=== PATIENT | female | born 1940 | race Caucasian/White ===

== ENCOUNTER 2024-08-01 15:36 | Inpatient (IN) | payer MEDICARE, SELFPAY ==
[2024-08-01] VITALS (14 sets, daily range): BP systolic 104–242; BP diastolic 92–115; PULSE 69–114; RESP 14–20; TEMP 36.2–36.7; O2SAT 97–100; BMI 10.3; BMI 22.7; BMI 22.8
--- NOTE | 2024-08-01 15:37 | EKG12_ITS ---
Test Reason : STROKE TEAM Blood Pressure : */* mmHG Vent. Rate : 78 BPM Atrial Rate : * BPM P-R Int : * ms QRS Dur : 118 ms QT Int : 400 ms P-R-T Axes : * -42 68 degrees QTcB Int : 456 ms Atrial fibrillation Left axis deviation Left ventricular hypertrophy with QRS widening ( R in aVL , Abhay product ) Abnormal ECG Confirmed by Fady Fonseca ([id number]), editor in chief SANAM HINES ([id number]) on 08/04/2024 10:23:31 AM Referred By: Vikki Fernandez Confirmed By: Fady Fonseca
--- NOTE | 2024-08-01 15:37 | CT_ITS ---
INDICATION: Neuro deficit, acute, stroke suspected EXAMINATION: CT BRAIN - CT Head Stroke Protocol W/O Contrast Injection TECHNIQUE: Multiple axial images were obtained of the head without intravenous contrast. The protocol utilizes one or more of the following dose reduction techniques: automated exposure control, adjustment of mA and/or kV according to patient size,and/or use of iterative reconstruction technique. IV Contrast dosage and agent: None. RADIATION DOSAGE (If Supplied By Facility): CTDIvol = ( ) mGy, DLP = ( ) mGycm COMPARISON: No relevant prior comparison study available FINDINGS: BRAIN PARENCHYMA: No intra- or extra-axial hemorrhage. There are patchy foci of low attenuation within the white matter of the cerebral hemispheres, a nonspecific finding most commonly reflecting small vessel ischemia. There is a focus of encephalomalacia within the right frontal lobe suggestive of an old infarct. There is a mildly high in attenuation 1.2 x 0.8 cm round focus arising from the right frontal lobe with overlying scalloping that has a chronic appearance. No evidence of acute infarct. No intracranial mass or mass effect. There is preservation of the dean/white matter interface. Posterior fossa structures are unremarkable. CSF SPACES: Appropriate for age. No hydrocephalus. Basal cisterns are patent. CALVARIUM, SKULL BASE, PARANASAL SINUSES AND MASTOID AIR CELLS: Clear. No discrete lytic or blastic abnormalities. ORBITS: Both globes, extraocular muscles, optic nerves and retrobulbar fat appear unremarkable. ASPECTS Score for Acute Strokes: 10 CT/STROKE Brain/Head without Cont IMPRESSION: Small vessel ischemia. Questionable 1.2 x 0.8 cm round focus involving the right frontal lobe, may be artifactual however cannot exclude a meningioma, recommend an MRI with contrast for further characterization. Focus of encephalomalacia within the right frontal lobe suggestive of an old infarct. N.B. : The above Results were Read Back by Pippa Alcantar MD to Sukhwinder Dixon DO, and understanding confirmed on 08/01/2024 15:55:20 (ET). Electronically Signed: Pippa Alcantar MD at 15:56 EST ,
--- NOTE | 2024-08-01 15:38 | CT_ITS ---
We are attempting to reach an attending provider to discuss findings. An addendum with communication details will be sent when the communication is complete. STUDY: CTA HEAD AND NECK WITH CONTRAST REASON FOR EXAM: Female, 84 years old. Neuro deficit, acute, stroke suspected RADIATION DOSAGE (If Supplied By Facility): CTDIvol = ( 23.19 ) mGy, DLP = ( 683.01 ) mGycm TECHNIQUE: CT angiography was performed with a multi-detector CT scanner. Data acquisition was obtained from the skull base through the vertex following intravenous administration of IV 75mL [id number]-[id number]. MIP images were reconstructed from the axial data set. Post-processing of the angiographic images was performed, with multiplanar reformation and 3D reconstruction. Individualized dose optimization techniques were used for this CT. The protocol utilizes one or more of the following dose reduction techniques: automated exposure control, adjustment of mA and/or kV according to patient size,and/or use of iterative reconstruction technique. COMPARISON: August 01, 2024 CT brain FINDINGS: Normal bilateral petrous carotid arteries. There is calcified plaque formation of the right cavernous carotid artery, with a moderate stenosis (50-75%). There is calcified plaque formation of the left cavernous carotid artery, with a moderate stenosis (50-75%). Normal right A1 segments of the anterior cerebral artery. Normal left A1 segments of the anterior cerebral artery. Normal intact anterior communicating artery (ACOM). Normal bilateral A2 segments of the anterior cerebral arteries. Normal right M1 and M2 segments of the middle cerebral arteries, with a normal M1 bifurcation. Normal left M1 and M2 segments of the middle cerebral arteries, with a normal M1 bifurcation. There is non-visualization of the right posterior communicating artery (PCOM). There is non-visualization of the left posterior communicating artery (PCOM). Left vertebral artery is dominant. There is moderate stenosis of the distal right vertebral artery. Normal basilar artery with a normal basilar bifurcation. The visualized bilateral superior cerebellar (SCA) arteries are normal. Normal bilateral P1, P2 and visualized P3 segments of the posterior cerebral arteries. There is no demonstrated aneurysm of the [place]. Right frontal ill-defined hypodensity. AORTIC ARCH: Normal visualized aortic arch. Normal origins of the brachiocephalic, left common carotid, and left subclavian arteries. RIGHT CAROTID ARTERIES: Normal right common carotid artery (CCA). Normal right common carotid bulb. Normal origin of the right internal carotid (ICA) artery without a hemodynamically significant stenosis. Normal visualized cervical portion of the right internal carotid artery. Normal origin of the right external carotid artery (ECA). LEFT CAROTID ARTERIES: Normal left common carotid artery (CCA). Normal left common carotid bulb. Normal origin of the left internal carotid (ICA) artery without a hemodynamically significant stenosis. Normal visualized cervical portion of the left internal carotid artery. Normal origin of the left external carotid artery (ECA). VERTEBRAL ARTERIES: Normal bilateral vertebral arteries. CT/STROKE CTA Head AND Neck W/Con IMPRESSION: Possible infarct right frontal lobe, age indeterminate. No enhancing mass. MRI with and without contrast would be more sensitive however. 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 Electronically Signed: Ayush Rodriguez MD at 16:28 EST ,
--- NOTE | 2024-08-01 15:38 | ED.VIS.STROK ---
HPI History of Present Illness Chief Complaint: Neuro S/Sx Informant: patient Narrative Narrative: Private vehicle presentation stroke symptoms concerns in triage with activation. 3:15 PM 15 minutes ago had concerns for slurred speech right arm weakness and numbness on right side. States speech currently still off numbness weakness is improved. No stroke history. No anticoagulants. Patient denies any past med history. Blood pressure elevated started 240 on arrival. No headache. No chest pains no back pains no abdominal pain. Prior similar symptoms: No PFSH PFSH Medical History (Updated 08/01/24 @ 16:[address] Vikki Fernandez MD) Afib HTN (hypertension) Home Medications ?Medication ?Instructions ?Recorded ?Last Taken ?Type NK 08/01/24 Unknown History Allergy/AdvReac Type Severity Reaction Status Date / Time No Known Allergies Allergy Verified 08/01/24 16:07 Family History (Updated 08/01/24 @ 17:[address] Vikki Fernandez MD) Mother CVA (cerebral vascular accident) Father No problems noted. Surgical History (Updated 08/01/24 @ 17:[address] Vikki Fernandez MD) History of bilateral tubal ligation History of total right hip replacement History of throat surgery Social History (Updated 08/01/24 @ 17:[address] Vikki Fernandez MD) household members: none Smoking Status: Never smoker alcohol intake: never substance use type: does not use ROS ROS ED Constitutional Constitutional ED: Denies chills, fever(s) or sweats ENT ENT ED: Denies sore throat Cardiovascular Cardiovascular: Denies chest pain, leg edema, palpitations or racing heartbeat Respiratory/Chest Respiratory/Chest: Denies cough, dyspnea or dyspnea on exertion Gastrointestinal Gastrointestinal: Denies abdominal pain, diarrhea, nausea or vomiting Genitourinary Genitourinary ED: Denies dysuria, hematuria or urinary frequency Musculoskeletal Musculoskeletal: Denies back pain, extremity pain or neck pain Integumentary Denies rash or wounds Neurologic Neurologic: Reports paresthesias, weakness and other Details: slurred speech ; Denies headache(s) EXAM Physical Exam Const Vital Signs: 08/01/24 15:36 08/01/24 15:37 08/01/24 15:38 Temperature 97.2 F L Temperature Source Temporal Pulse Rate 114 H 114 H 114 H Respiratory Rate 18 16 16 Blood Pressure 242/109 H 242/109 H 242/109 H Blood Pressure Mean 153 153 153 Pulse Ox 99 99 99 Oxygen Delivery Method Room Air Room Air 08/01/24 15:43 08/01/24 15:51 08/01/24 16:12 Temperature Temperature Source Pulse Rate 98 81 Respiratory Rate 15 20 H Blood Pressure 194/111 H 214/115 H Blood Pressure Mean 138 148 Pulse Ox 99 98 99 Oxygen Delivery Method Room Air Room Air 08/01/24 16:16 08/01/24 16:31 08/01/24 16:34 Temperature Temperature Source Pulse Rate 99 81 69 Respiratory Rate 17 18 15 Blood Pressure 214/115 H 191/93 H 191/93 H Blood Pressure Mean 148 125 125 Pulse Ox 100 98 98 Oxygen Delivery Method Positive well nourished and well developed General Appearance ED: well developed and NAD HEENT Reports moist mucous membranes normocephalic and atraumatic Eyes Eyes Narrative: No nystagmus General Eye ED: Yes normal appearance of both eyes Neck full ROM Chest Wall Chest: Negative for tenderness Resp normal respiratory effort and normal air movement Effort and Inspection: symmetric chest movement; Negative for respiratory distress Cardio regular rhythm and no murmurs Rate: tachycardic Peripheral Pulses: pulses 2+ throughout GI normal to inspection, nondistended, normoactive bowel sounds and non-tender Palpation: Negative for guarding or rebound tenderness present Extremity normal to inspection General Extremety ED: Negative for edema or tenderness General Extremity: Negative for edema Neuro oriented x3, CN's II-XII intact bilaterally and no sensory deficits noted Neuro Narrative: NIH of 1 secondary to dysarthria. Sensorium / Orientation: awake and alert Skin no rashes or lesions noted and no wounds NIHSS NIHSS Initial: 1a Level of Consciousness: 0 1b LOC Questions (Score 2 if aphasic/stupor): 0 1c LOC Commands (Only score 1st attempt): 0 2 Best Gaze (If aphasic, use reflexive mvmts.): 0 3 Visual: 0 4 Facial Palsy: 0 5 Motor Arm Right (UN = amputation/fusion): 0 5 Motor Arm Left: 0 6 Motor Leg Right: 0 6 Motor Leg Left: 0 7 Limb ataxia (Only + if out of proportion): 0 8 Sensory (Aphasia/stupor=0 or 1, coma=2): 0 9 Best Language: 0 10 Dysarthria (mute, coma=2, intubated=UN): 1 11 Extinction and Inattention (only scored if +): 0 Total Score: 1 MDM MDM MDM Narrative Medical decision making narrative: Interventions / MDM: Differential diagnosis: TIA, dysarthria, recurrent atrial fibrillation, accelerated hypertension Diagnosis considered but do not suspect: Intracranial hemorrhage however CT negative. My EKG interpretation: Atrial fibrillation rate of 78, no ST or T wave changes. Imaging independently reviewed and interpreted by myself: CT brain and discussion radiologist no intracranial hemorrhage old right frontal infarct, possible meningioma 1.[address] angiogram head and neck discussion with radiologist no LVO. External documents reviewed: N/A Test considered but not ordered:N/A ED course: Patient NIH of 1 due to dysarthria currently. Blood pressure is 240 in the triage room. No headache chest or abdominal pain. Patient sent over for CT scans stroke protocol workup. Will recheck blood pressure plan for antihypertensive. 1600: Stroke neurologist on the monitor Dr. Guerra, evaluate patient agrees with NIH 1 for slight dysarthria. Blood pressure down to 190/111. Monitor notes irregular rhythm fluctuating 90s to 110s. Further discussion with the patient she has had A-fib in the past along with hypertension and stopped her medications years ago including Xarelto. She denied any stroke history prior to that. He did not recommend TNK at this time pending results of the CT angiogram. I did speak with radiologist dry CT old infarct right frontal along with questionable 1.2 cm right frontal artifact versus lesion that is possible meningioma. Per neurology, recommended plan MRI with and without contrast secondary to this. Blood pressure recheck 211 systolic heart rate high 90s, we will treat her with labetalol 20 mg IV x 1. 1630: CT angiogram discussion with radiologist moderate stenosis bilateral cavernous sinus internal carotid less than 70%. Moderate stenosis v4 branch of right vertebral artery. 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 Blood pressure rechecked after labetalol systolic 190/100. Heart rate in the 80s. I spoke with hospitalist Dr. Fernandez for admission to PCU. Re-evaluation: stable Disposition discussed with patient/family/significant other: Patient and family Case discussed with consulting clinician: Stroke neurologist, hospitalist This note was generated with [employer] dictation software. It may contain incorrect words, spelling, and punctuation that were not noted in checking the note before signing. Lab Data Attestation: I reviewed the patient's lab results. Labs: Laboratory Results - last 24 hr 08/01/24 08/01/24 15:45 15:48 WBC 8.9 RBC 5.11 Hgb 16.3 H Hct 47.1 H MCV 92.2 MCH 31.9 MCHC 34.6 RDW Std Deviation 42.3 RDW Coeff of Anna 12.4 Plt Count 158 MPV 11.0 Immature Gran % (Auto) 0.200 Neut % (Auto) 53.6 Lymph % (Auto) 33.7 Howard % (Auto) 10.4 H Eos % (Auto) 1.5 Baso % (Auto) 0.6 Absolute Neuts (auto) 4.8 Absolute Lymphs (auto) 2.99 Nucleated RBC % 0 PT 13.9 INR 1.1 APTT 26.9 Sodium 137 Potassium 3.9 Chloride 103 Carbon Dioxide 30.0 Anion Gap 4 L BUN 14 Creatinine 1.03 H Estim Creat Clear Calc 37.89 Est GFR (MDRD) Af Amer 66 Est GFR (MDRD) Non-Af 55 L BUN/Creatinine Ratio 13.6 Glucose 105 Calcium 9.1 Magnesium 2.2 Troponin I High Sens 16 Radiography Diagnostic Testing: Clinical Impression(s) from Imaging Studies Brain CT 08/01/24 15:37 IMPRESSION: Small vessel ischemia. Questionable 1.2 x 0.8 cm round focus involving the right frontal lobe, may be artifactual however cannot exclude a meningioma, recommend an MRI with contrast for further characterization. Focus of encephalomalacia within the right frontal lobe suggestive of an old infarct. N.B. : The above Results were Read Back by Pippa Alcantar MD to Sukhwinder Dixon DO, and understanding confirmed on 08/01/2024 15:55:20 (ET). Electronically Signed: Pippa Alcantar MD at 15:56 EST , ADDENDUM: 08/01/24 2965 IMPRESSION: Small vessel ischemia. Questionable 1.2 x 0.8 cm round focus involving the right frontal lobe, may be artifactual however cannot exclude a meningioma, recommend an MRI with contrast for further characterization. Focus of encephalomalacia within the right frontal lobe suggestive of an old infarct. N.B. : The above Results were Read Back by Pippa Alcantar MD to Sukhwinder Dixon DO, and understanding confirmed on 08/01/2024 15:55:20 (ET). Electronically Signed: Pippa Alcantar MD at 15:56 EST , Head/Neck CTA 08/01/24 15:38 IMPRESSION: Possible infarct right frontal lobe, age indeterminate. No enhancing mass. MRI with and without contrast would be more sensitive however. 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 Electronically Signed: Ayush Rodriguez MD at 16:28 EST Reading Location ID and State: [address] [place] [address] Tel , Service support , ADDENDUM: 08/01/24 1642 IMPRESSION: Possible infarct right frontal lobe, age indeterminate. No enhancing mass. MRI with and without contrast would be more sensitive however. 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 N.B. : The above Results were Read Back by Ayush Rodriguez MD to Sukhwinder Dixon DO, and understanding confirmed on 08/01/2024 16:35:20 (ET). Electronically Signed: Ayush Rodriguez MD at 16:28 EST Reading Location ID and State: [address] [place] [address] Tel , Service support , Chest X-Ray 08/01/24 16:38 IMPRESSION: Normal x-ray examination of the chest. Electronically Signed: Ayush Rodriguez MD at 17:44 EST Reading Location ID and State: [address] [place] [address] Tel , Service support , Stroke Documentation Questions Stroke Team Activated: Yes Reviewed Inclusion/Exclusion criteria: Yes Was Patient considered for Endovascular Intervention?: No-CTA negative, determined not to be an endovascular candidate IV Thrombolytic Administered: No (Rapidly resolving symptoms not recommended by neurologist) Critical Care Time Critical Care Time: Yes Critical care time (excluding procedures): 30-74 minutes, Discussing w/Patient &/or Family/Back Order Clerk, Discussing w/Consultants, Arranging Admission or Transfer, Performing Direct Patient Care at Bedside and - (30 minutes) Discharge Plan Disposition Disposition: Acute Care Hospital [facility] Discharge Date/Time: 08/01/24 17:36
--- NOTE | 2024-08-01 15:44 | ED.RN ---
no old ekg
[2024-08-01 15:58] LABS: Absolute Lymphocyte Count 2.99 X10^3/uL (0.83-4.51); Absolute Neutrophil Count 4.8 X10^3/uL (2.0-7.7); Basophil# 0.05 X10^3/uL; Basophil% 0.6 % (0-1); Eosinophil# 0.13 X10^3/uL; Eosinophils% 1.5 % (0-5); Hematocrit 47.1 % (37-47); Hemoglobin 16.3 g/dL (12.0-15.0); Lymphocyte # 2.99 X10^3/ul (0.83-4.51); Lymphocyte % 33.7 % (19-41); Mean Corp Hgb Conc 34.6 g/dL (32-36); Mean Corpuscular Hgb 31.9 pg (27.0-32.0); Mean Corpuscular Volume 92.2 fL (81-99); Monocyte# 0.92 X10^3/uL; Monocyte% 10.4 % (0-10); NRBC Flagged by Analyzer 0 % (0-5); Neutrophil # 4.77 X10^3/uL (2.7-7.7); Neutrophil % 53.6 % (47-70); Platelet Count 158 K/mm3 (150-450); RBC Distribution Width CV 12.4 % (11.6-14.6); RBC Distribution Width SD 42.3 fl (35.1-43.9); Red Blood Count 5.11 M/mm3 (4.2-5.4); White Blood Count 8.9 K/mm3 (4.4-11.0)
[2024-08-01 16:17] LABS: International Normalized Ratio 1.1; Prothrombin Time (Protime)PT. 13.9 SECONDS (11.7-14.9)
[2024-08-01 16:18] LABS: Partial Thromboplast Time 26.9 Seconds (24.1-36.2)
[2024-08-01 16:22] LABS: Anion Gap 4 (5-15); BUN 14 mg/dL (7-18); BUN/Creat Ratio 13.6 RATIO (10-20); Calcium,Total 9.1 mg/dL (8.5-10.1); Chloride 103 mmol/L (98-107); Creatinine, Serum 1.03 mg/dL (0.55-1.02); EST Glomerular Filtration Rate 55 mL/min (>60); Est Glom Filt Rate - Afr Amer 66 mL/min (>60); Estimated Creatinine Clearance 37.89 ml/min; Glucose 105 mg/dL (74-106); Potassium 3.9 mmol/L (3.5-5.1); Sodium Level 137 mmol/L (136-145); Troponin-I HS 16 pg/mL (3.0-54.0)
--- NOTE | 2024-08-01 16:36 | ED.RN ---
PER DR. ARGUETA WE CAN CHANGE NIHSS ASSESSMENTS TO Q4H NOW THAT THE CTA RESULTS SHOW NO LVO.
--- NOTE | 2024-08-01 16:38 | RAD_ITS ---
STUDY: X-RAY CHEST REASON FOR EXAM: Female, 84 years old. Neuro deficit, acute, stroke suspected TECHNIQUE: Single frontal view of the chest. COMPARISON: None. FINDINGS: The lungs are clear and expanded. There is no demonstrated pleural abnormality. Normal size heart. Normal mediastinum and hyacinth. Normal visualized pulmonary arteries. Normal visualized aortic arch and descending thoracic aorta. Normal visualized thoracic spine. Normal visualized ribs, clavicles, and shoulders. There is no demonstrated abnormality of the visualized soft tissue structures of the upper abdomen. RAD/Chest 1 View IMPRESSION: Normal x-ray examination of the chest. Electronically Signed: Ayush Rodriguez MD at 17:44 EST ,
--- NOTE | 2024-08-01 16:48 | PCM.HP.STD ---
HPI - General General Date of Admission: 08/01/24 Date of Service: 08/01/24 Chief Complaint: Dysarthria, R sided weakness/paresthesias HPI Narrative The patient is an 84 y/o F w/ PMHx: Possible CKD stage III per current GFR trending unclear subtype, PAF, CT evidence prior CVA, HTN not on any medications who presents to the [facility] ED on 08/01/24 with history of onset slurred speech as well as right upper extremity weakness and paresthesias starting approximately 3:15 PM prompting her to drive to the ED for evaluation with weakness and numbness improving upon her arrival but speech still abnormal with no previous stroke history not on any anticoagulation or antiplatelet therapy despite her history with significantly elevated BP upon arrival but denied any chest discomfort or headache. Initial NIH stroke scale 1 for dysarthria only. Workup in the ED included T97.2 Temporally, heart rate 114, BP 242/109, respiratory rate 16, 99% on room air with most recent repeat vitals heart rate 99, BP 214/115, respiratory rate 17, 100% room air and most recent repeat BP 191/93, CBC with WBC 8.9, human 16.3, platelet 158 without marked shift, unremarkable coags, BMP with BUN/creatinine 14/1.03, GFR 55, troponin 16, CT brain with small vessel ischemia, questionable 1.2 x 0.8 cm round focus involving the right frontal lobe possibly artifactual however cannot exclude meningioma, a focus of encephalomalacia within the right frontal lobe suggestive of an old infarct, CTA head and neck with possible infarct in the right frontal lobe age-indeterminate with moderate stenosis bilateral cavernous segments of the internal carotid artery, moderate stenosis V4 segment of the right vertebral artery, EKG with atrial fibrillation with no comparison with on telemetry rate varying from 90-1 10. Given presentation timeline a stroke alert was called. Patient on monitor was noted to have a regular rhythm fluctuating 90-110. Patient then reported in the ED following discussions about irregular rhythm that she did have an underlying A-fib history and in the past stopped her medications including Xarelto. Stroke neurologist recommended deferral of TNK pending results of CT angiogram. Neurology recommended plan for MRI with and without contrast secondary to findings on CT head. [facility] Medical History (Updated 08/01/24 @ 16:[address] Vikki Fernandez MD) Afib HTN (hypertension) Home Medications ?Medication ?Instructions ?Recorded ?Last Taken ?Type NK 08/01/24 Unknown History Allergy/AdvReac Type Severity Reaction Status Date / Time No Known Allergies Allergy Verified 08/01/24 16:07 Family History (Updated 08/01/24 @ 17:[address] Vikki Fernandez MD) Mother CVA (cerebral vascular accident) Father No problems noted. Surgical History (Updated 08/01/24 @ 17:[address] Vikki Fernandez MD) History of bilateral tubal ligation History of total right hip replacement History of throat surgery Social History (Updated 08/01/24 @ 17:[address] Vikki Fernandez MD) household members: none Smoking Status: Never smoker alcohol intake: never substance use type: does not use ROS ROS Narrative Admission Review of Systems: CONSTITUTIONAL: No weight loss, fever, chills, + weakness or fatigue. HEENT: + Slurred speech. Eyes: No visual loss, blurred vision, double vision or yellow sclerae. Ears, Nose, Throat: No hearing loss, sneezing, congestion, runny nose or sore throat. SKIN: No rash or itching, lesions, wounds. CARDIOVASCULAR: No chest pain, chest pressure or chest discomfort, palpitations, edema, orthopnea, syncopal events. RESPIRATORY: No shortness of breath, cough or sputum, wheezing, hemoptysis. GASTROINTESTINAL: No anorexia, nausea, vomiting or diarrhea, abdominal pain, melena, BRBPR. GENITOURINARY: No dysuria, frequency, urgency or retention. NEUROLOGICAL: + Dysarthria, right upper extremity weakness, paresthesias. No headache, dizziness, syncope, paralysis, ataxia, change in bowel or bladder control, seizure. MUSCULOSKELETAL: + muscle, back pain, joint pain or stiffness. HEMATOLOGIC: No anemia. + Easy bleeding/bruising. LYMPHATICS: No enlarged nodes. No history of splenectomy. PSYCHIATRIC: No history of depression or anxiety. ENDOCRINOLOGIC: No reports of sweating, cold or heat intolerance. No polyuria or polydipsia. ALLERGIES: No history of asthma, hives, eczema or rhinitis. Vital Signs Vital Signs Vital Signs: 08/01/24 15:36 08/01/24 15:37 08/01/24 15:38 Temperature 97.2 F L Temperature Source Temporal Pulse Rate 114 H 114 H 114 H Respiratory Rate 18 16 16 Blood Pressure 242/109 H 242/109 H 242/109 H Blood Pressure Mean 153 153 153 Pulse Ox 99 99 99 Oxygen Delivery Method Room Air Room Air 08/01/24 15:43 08/01/24 15:51 08/01/24 16:12 Temperature Temperature Source Pulse Rate 98 81 Respiratory Rate 15 20 H Blood Pressure 194/111 H 214/115 H Blood Pressure Mean 138 148 Pulse Ox 99 98 99 Oxygen Delivery Method Room Air Room Air 08/01/24 16:16 08/01/24 16:31 08/01/24 16:34 Temperature Temperature Source Pulse Rate 99 81 69 Respiratory Rate 17 18 15 Blood Pressure 214/115 H 191/93 H 191/93 H Blood Pressure Mean 148 125 125 Pulse Ox 100 98 98 Oxygen Delivery Method Weight Weight: 136 lb 10.986 oz Body Mass Index (BMI) 22.7 Physical Exam Narrative Physical Examination: General: Awake, alert, oriented x 3 and cooperative, seated upright in ED bed, fatigued otherwise no acute distress, still mild dysarthria but improving and near baseline per discussion with patient and daughter. Skin: Normal color, normal turgor, no icterus, no cyanosis. HEENT: AT/NC, EOMI, PERRLA, mildly dry MM, no carotid bruits or JVD noted. Lungs: Mildly diminished, greater bases, appropriate effort, no rales, ronchi or wheezing. Heart: Irregular, currently rate controlled, no gallop, rub audible. Abdomen: Soft, NTTP, ND, mildly hyperactive BS, no HSM. Extremities: No cyanosis, clubbing, or edema. Neurological: Patient awake, alert, oriented as noted, cognitive function currently appears baseline intact per discussion with daughter; pupils equally reactive to light and accommodation, cranial nerves grossly normal, moving all 4 extremities, no focal deficits, strength intact, sensation intact, still possibly mild dysarthria but family and patient notes that she is improving and potentially nearing baseline. Psychiatric: Affect appears fatigued otherwise normal, no acute evidence of depressive or anxiety feelings. Results Lab / Micro Data 08/01/24 15:48 08/01/24 15:48 Labs: Laboratory Results - last 24 hr 08/01/24 15:48: WBC 8.9, RBC 5.11, Hgb 16.3 H, Hct 47.1 H, MCV 92.2, MCH 31.9, MCHC 34.6, RDW Std Deviation 42.3, RDW Coeff of Anna 12.4, Plt Count 158, MPV 11.0, Immature Gran % (Auto) 0.200, Neut % (Auto) 53.6, Lymph % (Auto) 33.7, [place] % (Auto) 10.4 H, Eos % (Auto) 1.5, Baso % (Auto) 0.6, Absolute Neuts (auto) 4.8, Absolute Lymphs (auto) 2.99, Nucleated RBC % 0, PT 13.9, INR 1.1, APTT 26.9, Sodium 137, Potassium 3.9, Chloride 103, Carbon Dioxide 30.0, Anion Gap 4 L, BUN 14, Creatinine 1.03 H, Estim Creat Clear Calc 37.89, Est GFR (MDRD) Af Amer 66, Est GFR (MDRD) Non-Af 55 L, BUN/Creatinine Ratio 13.6, Glucose 105, Calcium 9.1, Troponin I High Sens 16 Imaging Radiology Impression Brain CT 08/01/24 15:37 IMPRESSION: Small vessel ischemia. Questionable 1.2 x 0.8 cm round focus involving the right frontal lobe, may be artifactual however cannot exclude a meningioma, recommend an MRI with contrast for further characterization. Focus of encephalomalacia within the right frontal lobe suggestive of an old infarct. N.B. : The above Results were Read Back by Pippa Alcantar MD to Sukhwinder Dixon DO, and understanding confirmed on 08/01/2024 15:55:20 (ET). Electronically Signed: Pippa Alcantar MD at 15:56 EST , ADDENDUM: 08/01/24 1604 IMPRESSION: Small vessel ischemia. Questionable 1.2 x 0.8 cm round focus involving the right frontal lobe, may be artifactual however cannot exclude a meningioma, recommend an MRI with contrast for further characterization. Focus of encephalomalacia within the right frontal lobe suggestive of an old infarct. N.B. : The above Results were Read Back by Pippa Alcantar MD to Sukhwinder Dixon DO, and understanding confirmed on 08/01/2024 15:55:20 (ET). Electronically Signed: Pippa Alcantar MD at 15:56 EST , Head/Neck CTA 08/01/24 15:38 IMPRESSION: Possible infarct right frontal lobe, age indeterminate. No enhancing mass. MRI with and without contrast would be more sensitive however. 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 Electronically Signed: Ayush Rodriguez MD at 16:28 EST , ADDENDUM: 08/01/24 1642 IMPRESSION: Possible infarct right frontal lobe, age indeterminate. No enhancing mass. MRI with and without contrast would be more sensitive however. 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 N.B. : The above Results were Read Back by Ayush Rodriguez MD to Sukhwinder Dixon DO, and understanding confirmed on 08/01/2024 16:35:20 (ET). Electronically Signed: Ayush Rodriguez MD at 16:28 EST , Assessment & Plan Assessment/Plan (1) CVA (cerebral vascular accident): PLAN: Plan The patient is an 84 y/o F w/ PMHx: Possible CKD stage III per current GFR trending unclear subtype, PAF, HTN not on any medications who presents to the [facility] ED on 08/01/24 with history of onset slurred speech as well as right upper extremity weakness and paresthesias starting approximately 3:15 PM prompting her to drive to the ED for evaluation with weakness and numbness improving upon her arrival but speech still abnormal with no previous stroke history not on any anticoagulation or antiplatelet therapy despite her history with significantly elevated BP upon arrival but denied any chest discomfort or headache. Initial NIH stroke scale 1 for dysarthria only. #1. Transient right upper extremity weakness, paresthesias with dysarthria concerning for CVA with CT evidence of likely previous remote stroke: Will admit to PCU, will obtain MRI Brain with and without contrast given possible meningioma findings on CT of the brain per neurology recommendation, will obtain ECHO, PT/OT/Speech/Nutrition evaluation per protocol. Will allow permissive HTN with current agents per stroke protocol especially given significantly elevated BP upon ED arrival, maintain on asa, add moderate dose statin w/ AM FLP, fall precautions. Mag, TSH, FLP, HgbA1c requested. Maintain on fall and aspiration precautions. Will continue neurology consultation. Given this presentation we will need to restart patient anticoagulant therapy however will defer immediate resumption as 1 to assure there is no marked stroke and if there is would want to avoid possible conversion but will defer to neurology recommendations. #2. Hypertensive emergency: Patient upon arrival with significantly elevated BP in the setting of strokelike symptoms, will have as needed agents per stroke protocol and continue to closely monitor with deference of course to neurology service recommendation. #3. PAF: Unfortunately patient had previously been on medications including anticoagulant but noted she had come off for the last year for unclear reason, will maintain permissive hypertension and continue evaluation including MRI as noted but once clinically appropriate would plan to add rate control agent as well as anticoagulant. #4. Suspect Chronic Kidney Disease Stage III, unclear subtype, per GFR trending but no chronic labs noted previous thus uncertain chronicity: Admission BUN/Cr 14/1.03, GFR 55, unclear baseline creatinine or GFR, will repeat CMP in a.m. to further elucidate chronicity. #5. DVT prophylaxis: Lovenox. Once MRI is obtained and if clinically appropriate would then transition to oral anticoagulant given PAF history however defer immediately given concern for potential size of stroke and conversion potential. #6. CODE status: Patient ELZA is her daughter who is present and living will is currently in place. Discussed CODE status at length including difference between FULL code, DNR-CCA and DNR-CC status. Following discussions about the differences in these status, requested Full Code status but only short term mechanical ventilation and no prolonging methods if no quality of life. Advanced Care Planning Face to Face Time: 16 minutes. Charges/Coding Visit Charges Inpatient E&M: 68533 Init Hosp L3 Procedures Hospitalists Procedures: 03937 Advncd Care Plan 30 Min
--- NOTE | 2024-08-01 16:53 | MRI_ITS ---
We are attempting to reach an attending provider to discuss findings. An addendum with communication details will be sent when the communication is complete. STUDY: MRI BRAIN WITH AND WITHOUT CONTRAST REASON FOR EXAM: Female, 84 years old. CVA, ? meningioma, RT SIDED WEAKNESS, SLURRED SPEECH ALL RESOLVED NOW TECHNIQUE: Standardized multiplanar fat and water weighted pulse sequences were obtained. IV 12CC CLARISCAN was administered for the contrast portion of the examination. COMPARISON: CT and CTA brain August 01, 2024. FINDINGS: There is mild cerebral atrophy with widening of the extra-axial spaces and ventricular dilatation. There are a limited number of small white matter hyperintensities, distributed throughout the deep white matter tracts of the cerebral hemispheres, consistent with mild chronic white matter ischemic changes. Right frontal cortical encephalomalacia. Possible punctate focus of restricted diffusion posterior centrum semiovale bowel high parietal lobe. 5 x 13 mm cystic lesion near the transverse sinus right tentorium probably representing. Arachnoid granulation. Normal bilateral basal ganglia. Normal thalami. There is no extra-axial fluid accumulation. Normal flow voids within the major intracranial circulation suggesting patency by spin echo criteria. Normal venous enhancement. There is no enhancing intra-axial or extra-axial abnormality. Normal sella turcica, pituitary gland, infundibular stalk, optic chiasm and hypothalamus. Normal tectal plate and pineal gland. Normal midbrain, cezar and medulla. Normal cerebellum. Normal basal cisterns. Normal bilateral temporal bones. Normal bilateral internal auditory canals. No demonstrated orbital abnormality, within the constraints of a routine brain study. Normal visualized paranasal sinuses. Hyperostosis frontalis interna. Normal visualized soft tissue structures. Normal visualized upper cervical spine. MRI/Brain W/WO Contrast IMPRESSION: Questionable isolated punctate acute or subacute embolic infarct right posterior centrum semiovale. Other incidental findings as noted above. Electronically Signed: Ayush Rodriguez MD at 21:29 EST ,
[2024-08-01 17:11] LABS: Magnesium 2.2 mg/dL (1.6-2.6)
--- NOTE | 2024-08-01 17:57 | CM.ED ---
Social Work Reason for visit: Stroke alert Patient was brought in my two friends. They were working at the [employer] and patient began showing some stroke like symptoms. Patients friends had contacted patients daughter and she was on her way to the hospital. Supportive listening and emotional support offered. No further needs identified. Lucero Doyle, EXTRUSION ENGINEER, HYDRATE CONTROL TENDER
--- NOTE | 2024-08-01 18:29 | ECHOD_ITS ---
Version 2 Reason For Study: TIA/CVA Procedure This was a 2D Doppler, Color Flow transthoracic echocardiogram. Exam performed portable in patient room. Left Ventricle Normal LV size. Left ventricular systolic function is normal. The left ventricular ejection fraction is 60 %. No regional wall motion abnormalities noted. Right Ventricle Normal RV size. Normal systolic function. Atria The left atrium is mildly enlarged. A large mobile structure attached to the interatrial septum measuring up to 2.7 cm x 2.1 cm very suggestive of a thrombus though an atypical myxoma cannot be completely excluded. Small mass measuring 1.1 x 1.1 cm also noted in the lower septum also suggestive of a thrombus. The right atrium is mildly enlarged. Mitral Valve Normal mitral valve. Mild (1+) eccentric mitral valve insufficiency. Tricuspid Valve Normal tricuspid valve. Mild tricuspid valve insufficiency. Pulmonary artery systolic pressure is 26 mmHg. Aortic Valve Trisinus/trileaflet aortic valve. Mild (1+) eccentric aortic valve insufficiency. Pulmonic Valve Normal pulmonic valve. Great Vessels Normal aortic root. The pulmonary artery is normal size. Inferior vena cava collapse with respiration. Pericardium/Pleural No pericardial effusion. MMode/2D Measurements & Calculations LVIDd: 4.4 cm IVSd: 1.2 cm asc Aorta Diam: 2.9 cm LVIDs: 3.2 cm LVPWd: 1.1 cm RVDd: 2.6 cm FS: 27.3 % LAV(MOD-bp): 57.9 ml LVAd ap4: 20.7 cm2 SV(MOD-sp4): 34.9 ml LAV(MOD-bp) Indexed: 34.5 ml/m2 LVLd ap4: 6.4 cm SI(MOD-sp4): 20.8 ml/m2 LAV(MOD-sp2): 53.9 ml EDV(MOD-sp4): 56.1 ml LAV(MOD-sp4): 60.0 ml EDV(sp4-el): 57.4 ml LVAs ap4: 11.7 cm2 LVLs ap4: 5.7 cm ESV(MOD-sp4): 21.1 ml ESV(sp4-el): 20.4 ml EF(MOD-sp4): 62.3 % EF(sp4-el): 64.5 % SV(sp4-el): 37.0 ml LA A4 area: 21.8 cm2 LA dimension(2D): 4.6 cm RA A4 area: 24.0 cm2 TAPSE: 1.5 cm Doppler Measurements & Calculations MV E max kunal: 91.0 cm/sec Lat Peak E' Kunal: 13.5 cm/sec Med Peak E' Kunal: 7.6 cm/sec E/E' lat: 6.8 E/E' med: 12.0 Ao V2 max: 126.3 cm/sec AI max kunal: 523.4 cm/sec LV V1 max: 90.5 cm/sec Ao max P.4 mmHg AI max P.6 mmHg LV V1 max P.3 mmHg Ao V2 mean: 82.5 cm/sec LV V1 mean P.6 mmHg Ao mean P.0 mmHg AI dec slope: 248.8 cm/sec2 LV V1 mean: 57.3 cm/sec Ao V2 VTI: 24.0 cm AI P1/2t: 616.1 msec LV V1 VTI: 19.8 cm AV (velocity ratio): 0.82 PA V2 max: 92.8 cm/sec TR max kunal: 240.4 cm/sec TR max P.1 mmHg ECHO/Echo Complete Interpretation Summary Normal LV size. Left ventricular systolic function is normal. A large mobile structure attached to the interatrial septum measuring up to 2.7 cm x 2.1 cm very suggestive of a thrombus though an atypical myxoma cannot be completely exclude d. Smaller mass measuring 1.1 x 1.1 cm also noted in the lower septum also suggestive of a thro mbus. Rec DIMITRI The left ventricular ejection fraction is 60 %. Ordering Physician: Vikki Fernandez Referring Physician: Vikki Fernandez Performed By: Nancy Ridley RDCS, RVT
[2024-08-01] MEDS: Aspirin 325 MG Tablet PO (18:55)
[2024-08-01] MEDS: Atorvastatin Calcium 40 MG Tablet PO (20:28)
[2024-08-02] VITALS (9 sets, daily range): BP systolic 134–180; BP diastolic 76–96; PULSE 65–95; RESP 12–18; TEMP 35.9–36.7; O2SAT 97–99; BMI 22.8; BMI 23.3
[2024-08-02 07:20] LABS: Absolute Lymphocyte Count 1.85 X10^3/uL (0.83-4.51); Absolute Neutrophil Count 3.8 X10^3/uL (2.0-7.7); Basophil# 0.06 X10^3/uL; Basophil% 0.9 % (0-1); Eosinophil# 0.17 X10^3/uL; Eosinophils% 2.5 % (0-5); Hematocrit 42.4 % (37-47); Hemoglobin 14.6 g/dL (12.0-15.0); Lymphocyte # 1.85 X10^3/ul (0.83-4.51); Lymphocyte % 27.7 % (19-41); Mean Corp Hgb Conc 34.4 g/dL (32-36); Mean Corpuscular Hgb 31.7 pg (27.0-32.0); Mean Platelet Vol. 10.8 fl (6.2-12.0); Monocyte# 0.83 X10^3/uL; Monocyte% 12.4 % (0-10); NRBC Flagged by Analyzer 0 % (0-5); Neutrophil # 3.76 X10^3/uL (2.7-7.7); Neutrophil % 56.2 % (47-70); Platelet Count 132 K/mm3 (150-450); RBC Distribution Width CV 12.5 % (11.6-14.6); RBC Distribution Width SD 42.3 fl (35.1-43.9); Red Blood Count 4.61 M/mm3 (4.2-5.4); White Blood Count 6.7 K/mm3 (4.4-11.0)
[2024-08-02 07:55] LABS: ALB/GLOB Ratio 1.1 RATIO (0.9-2.4); AST(SGOT) 16 U/L (15-37); Alanine Aminotransfer ALT/SGPT 11 U/L (13-56); Albumin, Serum 3.3 g/dL (3.2-5.0); Alkaline Phosphatase 74 U/L (45-117); Anion Gap 6 (5-15); BUN 12 mg/dL (7-18); BUN/Creat Ratio 12.5 RATIO (10-20); Calcium,Total 8.8 mg/dL (8.5-10.1); Chloride 108 mmol/L (98-107); Cholesterol 152 mg/dL (200); Creatinine, Serum 0.96 mg/dL (0.55-1.02); EST Glomerular Filtration Rate 59 mL/min (>60); Est Glom Filt Rate - Afr Amer 72 mL/min (>60); Estimated Creatinine Clearance 40.66 ml/min; Glucose 91 mg/dL (74-106); High Density Lipoprotein 65 mg/dL; Potassium 4.1 mmol/L (3.5-5.1); Protein, Total 6.3 g/dL (6.4-8.2); Sodium Level 139 mmol/L (136-145); Triglycerides 57 mg/dL; Very Low Density Lipoprotein 11 mg/dL (5-40)
[2024-08-02] MEDS: Aspirin 81 MG TAB.CHEW PO (08:14)
[2024-08-02 08:45] LABS: Hemoglobin A1c 5.3 % (3.8-5.6)
--- NOTE | 2024-08-02 09:34 | NEURO.CONS ---
Assessment and Plan: Neuro Assessment/Plan ANGELICA CR, is a 84 F with afib off ac, ckd, and HTN who presents on 08/01/24 with right arm weakness, numbness and slurred speech. By the time she arrived to the ED her symptoms were resolving. She was hypertensive on arrival SBP 214 and was in afib. She had stopped all her meds a while back. Initial NIH was 1 for dysarthria. 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 MRI brain showed questionable punctate acute/subacute stroke in the right centrum semiovale. To my eyes I can see what rads is calling but very subtle and difficult to say if actually there or not, but regardless would NOT correspond with her presenting symptoms. LDL 76, a1c 5.3. - Her presentation is likely secondary to TIA. - Recommend starting ac for afib given old embolic infarcts and new TIA. Start atorva 40. Control BP. No need for ASA from stroke standpoint if on AC. CV risk factor optimization. No fruther recs at this time. Please reachout for any questions or concerns. Stroke to sign off. I personally attended this patient and spent a total time of 45 minutes evaluating this patient including clinical assessment, review of chart, medical history imaging, and determining appropriate treatment and workup. HPI Consult Data Date of Consult: 08/02/24 HPI Narrative HPI Narrative: ANGELICA CR, is a 84 F with afib off ac, ckd, and HTN who presents on 08/01/24 with right arm weakness, numbness and slurred speech. By the time she arrived to the ED her symptoms were resolving. She was hypertensive on arrival SBP 214 and was in afib. She had stopped all her meds a while back. Initial NIH was 1 for dysarthria. 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 MRI brain showed questionable punctate acute/subacute stroke in the right centrum semiovale. To my eyes I can see what rads is calling but very subtle and difficult to say if actually there or not, but regardless would NOT correspond with her presenting symptoms. LDL 76, a1c 5.3. Her presentation is likely secondary to TIA. Recommend starting ac for afib given old embolic infarcts and new TIA. Start atorva 40. Control BP. No need for ASA from stroke standpoint if on AC. CV risk factor optimization. No fruther recs at this time. Please reachout for any questions or concerns. Stroke to sign off. [facility] Medical History (Updated 08/01/24 @ 16:[address] Vikki Fernandez MD) Afib HTN (hypertension) Home Medications ?Medication ?Instructions ?Recorded ?Last Taken ?Type NK 08/01/24 Unknown History Allergy/AdvReac Type Severity Reaction Status Date / Time No Known Allergies Allergy Verified 08/01/24 16:07 Family History (Updated 08/01/24 @ 17:[address] Vikki Fernandez MD) Mother CVA (cerebral vascular accident) Father No problems noted. Surgical History (Updated 08/01/24 @ 17:[address] Vikki Fernandez MD) History of bilateral tubal ligation History of total right hip replacement History of throat surgery Social History (Updated 08/01/24 @ 17:[address] Vikki Fernandez MD) household members: none Smoking Status: Never smoker alcohol intake: never substance use type: does not use Vital Signs Vital Signs Vital Signs: 08/01/24 15:36 08/01/24 15:37 08/01/24 15:38 Temperature 97.2 F L Temperature Source Temporal Pulse Rate 114 H 114 H 114 H Pulse Strength Respiratory Rate 18 16 16 Respiratory Effort Respiratory Depth Respiratory Pattern Blood Pressure 242/109 H 242/109 H 242/109 H Blood Pressure Mean 153 153 153 Blood Pressure Source Blood Pressure Position Blood Pressure Location Pulse Ox 99 99 99 Oxygen Delivery Method Room Air Room Air 08/01/24 15:43 08/01/24 15:51 08/01/24 16:12 Temperature Temperature Source Pulse Rate 98 81 Pulse Strength Respiratory Rate 15 20 H Respiratory Effort Respiratory Depth Respiratory Pattern Blood Pressure 194/111 H 214/115 H Blood Pressure Mean 138 148 Blood Pressure Source Blood Pressure Position Blood Pressure Location Pulse Ox 99 98 99 Oxygen Delivery Method Room Air Room Air 08/01/24 16:16 08/01/24 16:31 08/01/24 16:34 Temperature Temperature Source Pulse Rate 99 81 69 Pulse Strength Respiratory Rate 17 18 15 Respiratory Effort Respiratory Depth Respiratory Pattern Blood Pressure 214/115 H 191/93 H 191/93 H Blood Pressure Mean 148 125 125 Blood Pressure Source Blood Pressure Position Blood Pressure Location Pulse Ox 100 98 98 Oxygen Delivery Method 08/01/24 17:00 08/01/24 17:13 08/01/24 18:35 Temperature 97.2 F L 98.0 F Temperature Source Oral Pulse Rate 83 83 90 Pulse Strength Respiratory Rate 16 16 14 Respiratory Effort Respiratory Depth Respiratory Pattern Blood Pressure 193/102 H 193/102 H 190/105 H Blood Pressure Mean 132 132 133 Blood Pressure Source Monitor Blood Pressure Position Semi-Fowlers Blood Pressure Location Left Arm Pulse Ox 97 97 100 Oxygen Delivery Method Room Air Room Air 08/01/24 19:09 08/01/24 20:26 08/01/24 20:30 Temperature 98.1 F Temperature Source Temporal Pulse Rate 79 Pulse Strength Respiratory Rate 18 Respiratory Effort Normal Non-Labored Respiratory Depth Normal Respiratory Pattern Normal Blood Pressure 104/92 H Blood Pressure Mean 96 Blood Pressure Source Monitor Blood Pressure Position Sitting Blood Pressure Location Right Arm Pulse Ox 98 98 Oxygen Delivery Method Room Air Room Air Room Air 08/01/24 20:30 08/01/24 20:30 08/02/24 00:30 Temperature 97.9 F Temperature Source Temporal Pulse Rate 75 Pulse Strength Normal (2+) Respiratory Rate 18 Respiratory Effort Normal Non-Labored Respiratory Depth Normal Respiratory Pattern Normal Blood Pressure 146/78 H Blood Pressure Mean 100 Blood Pressure Source Monitor Blood Pressure Position Supine Blood Pressure Location Right Arm Pulse Ox 98 Oxygen Delivery Method Room Air Room Air 08/02/24 04:25 08/02/24 07:45 08/02/24 08:11 Temperature 96.8 F L 98.0 F Temperature Source Temporal Oral Pulse Rate 79 72 Pulse Strength Respiratory Rate 14 12 Respiratory Effort Respiratory Depth Respiratory Pattern Blood Pressure 134/76 H 175/93 H Blood Pressure Mean 95 120 Blood Pressure Source Monitor Monitor Blood Pressure Position Supine Supine Blood Pressure Location Left Arm Right Arm Pulse Ox 97 98 98 Oxygen Delivery Method Room Air Room Air Room Air 08/02/24 09:27 Temperature Temperature Source Pulse Rate Pulse Strength Respiratory Rate Respiratory Effort Respiratory Depth Respiratory Pattern Blood Pressure Blood Pressure Mean Blood Pressure Source Blood Pressure Position Blood Pressure Location Pulse Ox Oxygen Delivery Method Room Air Weight Weight: 63.6 kg Body Mass Index (BMI) 23.3 NIHSS NIHSS Nursing Documentation NIHSS Nursing Documentation: NIHSS: Ischemic Stroke/TIA Start: 08/01/24 18:29 Text: For PCU Patients: NIH and Neuro Check every 4 Status: Active hours, PRN and with change in RN caregiver. Freq: [id number] Protocol: Activity Type Activity Date Activity User E-sign Co-sign Detail Recorded Client Recorded Date Recorded By Document 08/02/24 09:27 [id number] 08/02/24 09:29 NB 08/02/24 09:27 NIH Stroke Scale [NIHSS] A score of 0 is normal or asymptomatic . Total possible score is 42. Inpatient: RN or Physician to activate a stroke alert for onset of new stroke symptoms or with NIHSS increase >/= 3 points. Following change in neurological status, NIHSS will be performed per physician order or more frequently PRN. -1a. Level of Consciousness Alert; keenly responsive -1b. LOC Questions Answers BOTH questions correctly. -1c. LOC Commands Performs both tasks correctly . -2. Best Gaze Normal -3. Visual No visual loss -4. Facial Palsy Normal symmetrical movements -5a. Left Arm No drift; arm holds 90 (or 45 ) degrees for full 10 seconds -5b. Right Arm No drift; arm holds 90 (or 45 ) degrees for full 10 seconds -6a. Left Leg No drift; leg holds 30-degree position for full 5 seconds -6b. Right Leg No drift; leg holds 30-degree position for full 5 seconds -7. Limb Ataxia Absent -8. Sensory Normal; no sensory loss -9. Best Language No aphasia; normal -10. Dysarthria Normal -11. Extinction and Inattention No abnormality -Total 0 Query Text:A score of 0 is normal or asymptomatic. Total possible score is 42 . ED: Notify Physician for NIHSS increase by > / = 3 points. Inpatient: RN or Physician to activate a stroke alert for NIHSS increase of > / = 3 points. Coma Scale [Assess] -Eye Opening Spontaneous -Motor Obeys Commands -Verbal Oriented [Total] -Coma Scale Total 15 Physical Exam Narrative Physical Exam: - General: NAD, pleasant, cooperative, well nourished, well developed - Head/Eyes: Atraumatic, normocephalic, clear cornea, normal sclera/conjunctive - Neuro: ? Mental Status: AAOX4 & following simple commands. ? Speech: Clear and fluent with good repetition, comprehension, & naming. No aphasia or dysarthria ? CN II: Visual jacobson are full to confrontation. ? CN III, IV, : EOMI, no gaze preference, no nystagmus, no ptosis ? CN V: Facial sensation is intact to light touch throughout. ? CN VII: Face is symmetric with normal eye closure and smile. ? CN VII: Hearing is grossly normal to conversational speech. ? CN XI: Head turning, and shoulder shrug are intact. ? Motor: Able to sustain all limbs ? Sensation: Normal to light touch bilaterally. ? Coordination: Normal FTN & HTS. No abn movements seen. Lab / Micro Data 08/02/24 07:07 08/02/24 07:07 Labs: Laboratory Results - last 24 hr 08/01/24 15:45: Magnesium 2.2 08/01/24 15:48: WBC 8.9, RBC 5.11, Hgb 16.3 H, Hct 47.1 H, MCV 92.2, MCH 31.9, MCHC 34.6, RDW Std Deviation 42.3, RDW Coeff of Anna 12.4, Plt Count 158, MPV 11.0, Immature Gran % (Auto) 0.200, Neut % (Auto) 53.6, Lymph % (Auto) 33.7, Bucks % (Auto) 10.4 H, Eos % (Auto) 1.5, Baso % (Auto) 0.6, Absolute Neuts (auto) 4.8, Absolute Lymphs (auto) 2.99, Nucleated RBC % 0, PT 13.9, INR 1.1, APTT 26.9, Sodium 137, Potassium 3.9, Chloride 103, Carbon Dioxide 30.0, Anion Gap 4 L, BUN 14, Creatinine 1.03 H, Estim Creat Clear Calc 37.89, Est GFR (MDRD) Af Amer 66, Est GFR (MDRD) Non-Af 55 L, BUN/Creatinine Ratio 13.6, Glucose 105, Calcium 9.1, Troponin I High Sens 16 08/02/24 07:07: WBC 6.7, RBC 4.61, Hgb 14.6, Hct 42.4, MCV 92.0, MCH 31.7, MCHC 34.4, RDW Std Deviation 42.3, RDW Coeff of Anna 12.5, Plt Count 132 L, MPV 10.8, Immature Gran % (Auto) 0.300, Neut % (Auto) 56.2, Lymph % (Auto) 27.7, Bucks % (Auto) 12.4 H, Eos % (Auto) 2.5, Baso % (Auto) 0.9, Absolute Neuts (auto) 3.8, Absolute Lymphs (auto) 1.85, Nucleated RBC % 0, Sodium 139, Potassium 4.1, Chloride 108 H, Carbon Dioxide 25.0, Anion Gap 6, BUN 12, Creatinine 0.96, Estim Creat Clear Calc 40.66, Est GFR (MDRD) Af Amer 72, Est GFR (MDRD) Non-Af 59 L, BUN/Creatinine Ratio 12.5, Glucose 91, Hemoglobin A1c 5.3, Calcium 8.8, Total Bilirubin 0.60, AST 16, ALT 11 L, Alkaline Phosphatase 74, Total Protein 6.3 L, Albumin 3.3, Globulin 3.0, Albumin/Globulin Ratio 1.1, Triglycerides 57, Cholesterol 152, LDL Cholesterol 76, VLDL Cholesterol 11, HDL Cholesterol 65, TSH 2.700 Imaging Radiology Impression Brain CT 08/01/24 15:37 IMPRESSION: Small vessel ischemia. Questionable 1.2 x 0.8 cm round focus involving the right frontal lobe, may be artifactual however cannot exclude a meningioma, recommend an MRI with contrast for further characterization. Focus of encephalomalacia within the right frontal lobe suggestive of an old infarct. N.B. : The above Results were Read Back by Pippa Alcantar MD to Sukhwinder Dixon DO, and understanding confirmed on 08/01/2024 15:55:20 (ET). Electronically Signed: Pippa Alcantar MD at 15:56 EST , ADDENDUM: 08/01/24 1603 IMPRESSION: Small vessel ischemia. Questionable 1.2 x 0.8 cm round focus involving the right frontal lobe, may be artifactual however cannot exclude a meningioma, recommend an MRI with contrast for further characterization. Focus of encephalomalacia within the right frontal lobe suggestive of an old infarct. N.B. : The above Results were Read Back by Pippa Alcantar MD to Sukhwinder Dixon DO, and understanding confirmed on 08/01/2024 15:55:20 (ET). Electronically Signed: Pippa Alcantar MD at 15:56 EST , Head/Neck CTA 08/01/24 15:38 IMPRESSION: Possible infarct right frontal lobe, age indeterminate. No enhancing mass. MRI with and without contrast would be more sensitive however. 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 Electronically Signed: Ayush Rodriguez MD at 16:28 EST Reading Location ID and State: [facility] / [place] Tel , Service support , ADDENDUM: 08/01/24 1642 IMPRESSION: Possible infarct right frontal lobe, age indeterminate. No enhancing mass. MRI with and without contrast would be more sensitive however. 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 N.B. : The above Results were Read Back by Ayush Rodriguez MD to Sukhwinder Dixon DO, and understanding confirmed on 08/01/2024 16:35:20 (ET). Electronically Signed: Ayush Rodriguez MD at 16:28 EST Reading Location ID and State: [place] Tel , Service support , Chest X-Ray 08/01/24 16:38 IMPRESSION: Normal x-ray examination of the chest. Electronically Signed: Ayush Rodriguez MD at 17:44 EST Reading Location ID and State: [facility] / [place] Tel , Service support , Brain MRI 08/01/24 16:53 IMPRESSION: Questionable isolated punctate acute or subacute embolic infarct right posterior centrum semiovale. Other incidental findings as noted above. Electronically Signed: Ayush Rodriguez MD at 21:29 EST Reading Location ID and State: [place] / [place] Tel , Service support , ADDENDUM: 08/01/24 2238 IMPRESSION: Questionable isolated punctate acute or subacute embolic infarct right posterior centrum semiovale. Other incidental findings as noted above. N.B. : The above Results were Read Back by Ayush Rodriguez MD to Christal Pittman RN, and understanding confirmed on 08/01/2024 22:31:45 (ET). Electronically Signed: Ayush Rodriguez MD at 21:29 EST , Active Medications Active Medications Active Medications: Current Medications Generic Name Dose Route Start Last Admin Trade Name Freq PRN Reason Stop Dose Admin Acetaminophen 650 mg 08/01/24 18:29 Acetaminophen 325 Mg Tablet PO Q4H PRN PRN Fever, pain -05/01 Al Hydroxide/Mg Hydroxide 30 ml 08/01/24 18:29 Mag Hydrox/Al Hydrox/Simeth 30 Ml Udc PO Q6H PRN PRN Gastric Burning Albuterol Sulfate 2.5 mg 08/01/24 18:29 Albuterol 2.5 Mg/3 Ml Vial.Neb. INHALATION Q2H PRN PRN Dyspnea, wheezing Aspirin 81 mg 08/02/24 08:00 08/02/24 08:14 Aspirin 81 Mg Tab.Chew PO 81 mg BREAKFAST RAN Administration Atorvastatin Calcium 40 mg 08/01/24 22:00 08/01/24 20:28 Atorvastatin Calcium 40 Mg Tablet PO 40 mg QHS RAN Administration Enoxaparin Sodium 40 mg 08/02/24 10:00 Enoxaparin 40 Mg/0.4 Ml Syringe SC DAILY RAN Guaifenesin 20 ml 08/01/24 18:29 Guaifenesin 10 Ml Udc (200mg/10ml) PO Q4H PRN PRN COUGH Hydralazine HCl 5 mg 08/01/24 18:29 Hydralazine 20 Mg/Ml Vial IV 08/02/24 18:29 Q30M PRN maintain BP parameters with HR <60 Sodium Chloride 100 mls @ 15 mls/hr 08/01/24 18:31 IV .Q6H40M PRN Saline Flush Sodium Chloride 100 mls @ 15 mls/hr 08/01/24 18:31 IV .Q6H40M PRN Additional IVPB Infusion Labetalol HCl 10 - 20 mg 08/01/24 18:29 Labetalol 20mg/4ml Syringe IV 08/02/24 18:29 Q10M PRN PRN maintain BP parameters with HR >/=60 Melatonin 3 mg 08/01/24 18:29 Melatonin 3 Mg Tablet PO QHS PRN PRN INSOMNIA Ondansetron HCl 4 mg 08/01/24 18:29 Ondansetron 4 Mg/2 Ml Vial IV Q8H PRN PRN NAUSEA/VOMITING Prochlorperazine Edisylate 5 mg 08/01/24 18:29 Prochlorperazine 10 Mg/2 Ml Vial IV Q4H PRN PRN Breakthrough Nausea/Vomiting Senna/Docusate Sodium 2 tablet 08/01/24 18:29 Senna/Docusate Sodium 1 Tablet PO BID PRN PRN Constipation Sodium Chloride 10 - 40 ml 08/01/24 18:31 0.9% Saline Lock 10 Ml Syringe IV UD PRN SALINE FLUSH
[2024-08-02 12:32] LABS: Partial Thromboplast Time 28.6 Seconds (24.1-36.2)
--- NOTE | 2024-08-02 13:10 | CASEMGMT ---
Social Work Pt admitted with stroke. SW met with pt and completed PHQ9 depression screen. Pt score of 0, no depression indicated. BRIAN Pizano
[2024-08-02] MEDS: HEPARIN/D5w 25,000 UNITS 25,000 UNITS/250 ML IV.SOLN. 10 UNITS CONT INF (13:30)
--- NOTE | 2024-08-02 14:07 | CASEMGMT ---
BRIANA PHOENIX Assessment Face to Face with patient for initial transition planning/care coordination assessment. BRIANA PHOENIX introduced self and role at [facility], pt voices understanding. Pt is A&Ox4 and is resting comfortably in bed and is calm. Pt daughter at bedside. Care providers, pharmacy, and demographics verified. Admitting dx: CVA PCP: No PCP. Pt is from [place] and declines the local PCP list and reports that she has a provider in-mind that she will get established with Specialists: Denies current Preferred Pharmacy: [email or web address] Insurance: [employer] Prescription Benefit: Yes LNOK: Mary John (LEO) Living Arrangements: Pt lives alone in a single story home with 1 step to enter with a handrail ADLs/IADLs: Ind Transportation: Self, daughter DME: [facility], Cane, walk-in shower with grab bars and a chair HHC/SNF: Reports HH out of [place] x 5-6 years ago after hip surgery. Denies SNF History Pt?s goal: Return home Plan: Anticipate DC Sunday. Pt states that she plans to DC to her daughters home. Pt did well with therapy, see notes. 6-Click score is 24. Pt denies further home needs at this time and states that she feels safe with this plan moving forward. CM to follow for a new blood thinning Rx. Veena Chowdary RN, CM
--- NOTE | 2024-08-02 14:22 | PCM.PN.HOSP ---
Reason for Visit Reason for Visit: Diagnoses Cerebral infarction, unspecified (08/01/24) Subjective Subjective Patient reports feeling back to baseline now, no acute complaints Objective Data Objective Data Vital Signs: Vital Signs Temp Pulse Resp BP Pulse Ox O2 Del Method 98.0 F 72 12 175/93 H 98 Room Air 08/02/24 08:11 08/02/24 08:11 08/02/24 08:11 08/02/24 08:11 08/02/24 08:11 08/02/24 09:27 Oxygen Delivery Method Room Air Weight: 63.6 kg Body Mass Index (BMI) 23.3 Lab / Micro Data 08/02/24 07:07 08/02/24 07:07 Labs: Laboratory Results - last 24 hr 08/01/24 15:45: Magnesium 2.2 08/01/24 15:48: WBC 8.9, RBC 5.11, Hgb 16.3 H, Hct 47.1 H, MCV 92.2, MCH 31.9, MCHC 34.6, RDW Std Deviation 42.3, RDW Coeff of Anna 12.4, Plt Count 158, MPV 11.0, Immature Gran % (Auto) 0.200, Neut % (Auto) 53.6, Lymph % (Auto) 33.7, [place] % (Auto) 10.4 H, Eos % (Auto) 1.5, Baso % (Auto) 0.6, Absolute Neuts (auto) 4.8, Absolute Lymphs (auto) 2.99, Nucleated RBC % 0, PT 13.9, INR 1.1, APTT 26.9, Sodium 137, Potassium 3.9, Chloride 103, Carbon Dioxide 30.0, Anion Gap 4 L, BUN 14, Creatinine 1.03 H, Estim Creat Clear Calc 37.89, Est GFR (MDRD) Af Amer 66, Est GFR (MDRD) Non-Af 55 L, BUN/Creatinine Ratio 13.6, Glucose 105, Calcium 9.1, Troponin I High Sens 16 08/02/24 07:07: WBC 6.7, RBC 4.61, Hgb 14.6, Hct 42.4, MCV 92.0, MCH 31.7, MCHC 34.4, RDW Std Deviation 42.3, RDW Coeff of Anna 12.5, Plt Count 132 L, MPV 10.8, Immature Gran % (Auto) 0.300, Neut % (Auto) 56.2, Lymph % (Auto) 27.7, [place] % (Auto) 12.4 H, Eos % (Auto) 2.5, Baso % (Auto) 0.9, Absolute Neuts (auto) 3.8, Absolute Lymphs (auto) 1.85, Nucleated RBC % 0, Sodium 139, Potassium 4.1, Chloride 108 H, Carbon Dioxide 25.0, Anion Gap 6, BUN 12, Creatinine 0.96, Estim Creat Clear Calc 40.66, Est GFR (MDRD) Af Amer 72, Est GFR (MDRD) Non-Af 59 L, BUN/Creatinine Ratio 12.5, Glucose 91, Hemoglobin A1c 5.3, Calcium 8.8, Total Bilirubin 0.60, AST 16, ALT 11 L, Alkaline Phosphatase 74, Total Protein 6.3 L, Albumin 3.3, Globulin 3.0, Albumin/Globulin Ratio 1.1, Triglycerides 57, Cholesterol 152, LDL Cholesterol 76, VLDL Cholesterol 11, HDL Cholesterol 65, TSH 2.700 08/02/24 12:14: APTT 28.6 Radiography Diagnostic Testing: Radiology Impression Brain CT 08/01/24 15:37 IMPRESSION: Small vessel ischemia. Questionable 1.2 x 0.8 cm round focus involving the right frontal lobe, may be artifactual however cannot exclude a meningioma, recommend an MRI with contrast for further characterization. Focus of encephalomalacia within the right frontal lobe suggestive of an old infarct. N.B. : The above Results were Read Back by Pippa Alcantar MD to Sukhwinder Dixon DO, and understanding confirmed on 08/01/2024 15:55:20 (ET). Electronically Signed: Pippa Alcantar MD at 15:56 EST , ADDENDUM: 08/01/24 [id number] IMPRESSION: Small vessel ischemia. Questionable 1.2 x 0.8 cm round focus involving the right frontal lobe, may be artifactual however cannot exclude a meningioma, recommend an MRI with contrast for further characterization. Focus of encephalomalacia within the right frontal lobe suggestive of an old infarct. N.B. : The above Results were Read Back by Pippa Alcantar MD to Sukhwinder Dixon DO, and understanding confirmed on 08/01/2024 15:55:20 (ET). Electronically Signed: Pippa Alcantar MD at 15:56 EST , Head/Neck CTA 08/01/24 15:38 IMPRESSION: Possible infarct right frontal lobe, age indeterminate. No enhancing mass. MRI with and without contrast would be more sensitive however. 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 Electronically Signed: Ayush Rodriguez MD at 16:28 EST Reading Location ID and State: [facility] / [place] Tel , Service support , ADDENDUM: 08/01/24 1642 IMPRESSION: Possible infarct right frontal lobe, age indeterminate. No enhancing mass. MRI with and without contrast would be more sensitive however. 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 N.B. : The above Results were Read Back by Ayush Rodriguez MD to Sukhwinder Dixon DO, and understanding confirmed on 08/01/2024 16:35:20 (ET). Electronically Signed: Ayush Rodriguez MD at 16:28 EST , Chest X-Ray 08/01/24 16:38 IMPRESSION: Normal x-ray examination of the chest. Electronically Signed: Ayush Rodriguez MD at 17:44 EST , Brain MRI 08/01/24 16:53 IMPRESSION: Questionable isolated punctate acute or subacute embolic infarct right posterior centrum semiovale. Other incidental findings as noted above. Electronically Signed: Ayush Rodriguez MD at 21:29 EST Reading Location ID and State: [address] [place] [address] Tel , Service support , ADDENDUM: 08/01/248 IMPRESSION: Questionable isolated punctate acute or subacute embolic infarct right posterior centrum semiovale. Other incidental findings as noted above. N.B. : The above Results were Read Back by Ayush Rodriguez MD to Christal Pittman RN, and understanding confirmed on 08/01/2024 22:31:45 (ET). Electronically Signed: Ayush Rodriguez MD at 21:29 EST Reading Location ID and State: [address] [place] [address] Tel , Service support , Echocardiogram 08/01/24 18:29 Interpretation Summary Normal LV size. Left ventricular systolic function is normal. A large mobile structure attached to the interatrial septum measuring up to 2.7 cm x 2.1 cm very suggestive of a thrombus though an atypical myxoma cannot be completely excluded. Smaller mass measuring 1.1 x 1.1 cm also noted in the lower septum also suggestive of a thrombus. Rec DIMITRI The left ventricular ejection fraction is 60 %. Ordering Physician: Vikki Fernandez Referring Physician: Vikki Fernandez Performed By: Nancy Ridley, SONIA, RVT Physical Exam Narrative General: Alert, oriented, no apparent distress HEENT: Atraumatic, normocephalic Eyes: extraocular movements grossly intact Neck: Supple Respiratory: normal respiratory effort Cardiovascular: no edema appreciated GI: nondistended Extremities: Moving all extremities Neuro: No overt focal neurological deficits Psych: Cooperative Assessment & Plan Assessment/Plan (1) Thrombus in heart chamber: PLAN: Plan # Atrial thrombus -Echo showed a large mobile structure attached to interatrial septum measuring 2.7 cm x 2.1 cm suggestive of thrombus but atypical myxoma cannot be excluded, additionally small area of 1.1 x 1.1 cm also noted in the lower septum also suggestive of thrombus -Patient placed on heparin drip -DIMITRI recommended, will place order for this # TIA -Presenting symptoms completely resolved -MRI with questionable small infarct on the right however suspected that this is artifact and also does not correlate with the symptoms she had on presentation -Neurology recommended blood pressure control and okay to start anticoagulation with no need for aspirin from stroke standpoint -Discussed with neurologist #DVT ppx: On heparin drip Madai Mitchell MD Time spent in the patient's overall evaluation, decision-making process, review of diagnostic data, adjustment of management, discussion with other providers, nursing and ancillary staff involved in patient's care documentation, 39 Minutes Charges/Coding Visit Charges Inpatient E&M: 79664 Subs Hosp L2
--- NOTE | 2024-08-02 17:20 | ECHOTEE_ITS ---
Reason For Study: THROMBUS/ TIA Medication DIMITRI probe 6VT-D (SN [id number]) passed without difficulty. No complications were noted. Performed a rapid injection of agitated mix of 9 cc saline and 1cc air to assess for atrial septal defect. Fentanyl 50 mcg given slow IVP. Versed 2 mg given slow IVP. Cetacaine Topical [place] given X3 orally. 2ml Definity given slow IVP. Left Ventricle Normal LV size. Left ventricular systolic function is normal. The left ventricular ejection fraction is 60 %. No regional wall motion abnormalities noted. Right Ventricle Normal RV size. Normal systolic function. Atria Bubble contrast study is negative for PFO/ASD. The left atrium is mildly enlarged. 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 2 masses noted attached to the interatrial septum with a stalk the largest measuring 3 x 2.3 cm. No thrombus is detected in the left atrial appendage. Normal right atrium. Mitral Valve Normal mitral valve. Mild (1+) eccentric mitral valve insufficiency. Tricuspid Valve Normal tricuspid valve. Aortic Valve Trisinus/trileaflet aortic valve. Mild (1+) aortic valve insufficiency. Pulmonic Valve Normal pulmonic valve. Vessels Normal aortic root. Normal arch. The pulmonary artery is normal size. Normal pulmonary veins. Pericardium No pericardial effusion. ECHO/Echo Transesophageal (DIMITRI) Interpretation Summary Normal LV size. Left ventricular systolic function is normal. The left ventricular ejection fraction is 60 %. The left atrium is mildly enlarged. 2 masses noted attached to the interatrial septum with a stalk the largest maryuri uring 3 x 2.3 cm. 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 Ordering Physician: Madai Mitchell Referring Physician: Vikki Fernandez Performed By: Ivania Childers RDCS
[2024-08-02] MEDS: Atorvastatin Calcium 40 MG Tablet PO (20:09)
[2024-08-02] MEDS: hydrALAZINE 20 MG/ML Vial 10 MG IV (22:25)
[2024-08-02] MEDS: 0.9% Saline Lock 10 ML Syringe IV (22:26)
[2024-08-02 23:23] LABS: Bedside Glucose 87 mg/dL (74-106)
[2024-08-03] VITALS (8 sets, daily range): BP systolic 136–177; BP diastolic 78–94; PULSE 72–115; RESP 18; TEMP 36.6–37.2; O2SAT 94–100; BMI 23.2; BMI 23.3
[2024-08-03 04:06] LABS: Absolute Lymphocyte Count 2.28 X10^3/uL (0.83-4.51); Absolute Neutrophil Count 3.6 X10^3/uL (2.0-7.7); Basophil# 0.06 X10^3/uL; Basophil% 0.8 % (0-1); Eosinophil# 0.19 X10^3/uL; Eosinophils% 2.7 % (0-5); Hematocrit 42.9 % (37-47); Hemoglobin 14.7 g/dL (12.0-15.0); Lymphocyte # 2.28 X10^3/ul (0.83-4.51); Lymphocyte % 32.3 % (19-41); Mean Corp Hgb Conc 34.3 g/dL (32-36); Mean Corpuscular Hgb 31.3 pg (27.0-32.0); Mean Corpuscular Volume 91.5 fL (81-99); Mean Platelet Vol. 10.9 fl (6.2-12.0); Monocyte# 0.86 X10^3/uL; Monocyte% 12.2 % (0-10); NRBC Flagged by Analyzer 0 % (0-5); Neutrophil # 3.64 X10^3/uL (2.7-7.7); Neutrophil % 51.6 % (47-70); Platelet Count 150 K/mm3 (150-450); RBC Distribution Width CV 12.6 % (11.6-14.6); RBC Distribution Width SD 42.2 fl (35.1-43.9); Red Blood Count 4.69 M/mm3 (4.2-5.4); White Blood Count 7.1 K/mm3 (4.4-11.0)
[2024-08-03 04:14] LABS: Partial Thromboplast Time 67.2 Seconds (24.1-36.2)
[2024-08-03 04:23] LABS: Anion Gap 5 (5-15); BUN 13 mg/dL (7-18); BUN/Creat Ratio 13.7 RATIO (10-20); Calcium,Total 8.9 mg/dL (8.5-10.1); Chloride 109 mmol/L (98-107); Creatinine, Serum 0.95 mg/dL (0.55-1.02); EST Glomerular Filtration Rate 60 mL/min (>60); Est Glom Filt Rate - Afr Amer 73 mL/min (>60); Estimated Creatinine Clearance 41.08 ml/min; Glucose 102 mg/dL (74-106); Sodium Level 139 mmol/L (136-145)
[2024-08-03] MEDS: Aspirin 81 MG TAB.CHEW PO (08:13)
--- NOTE | 2024-08-03 08:34 | PCM.PN.HOSP ---
Reason for Visit Reason for Visit: Diagnoses Intracardiac thrombosis, not elsewhere classified (08/01/24) Cerebral infarction, unspecified (08/01/24) Subjective Subjective Patient denies any chest pain or shortness of breath, no neurologic complaints. Objective Data Objective Data Vital Signs: Vital Signs Temp Pulse Resp BP Pulse Ox O2 Del Method 97.8 F 72 18 158/84 H 96 Room Air 08/03/24 03:50 08/03/24 03:50 08/03/24 03:50 08/03/24 03:50 08/03/24 03:50 08/03/24 03:50 Oxygen Delivery Method Room Air Weight: 63.5 kg Body Mass Index (BMI) 23.3 Intake & Output: Intake and Output for Last 24 Hours 08/01/24 08/02/24 08/03/24 23:59 23:59 23:59 Intake Total 805.83 / 805.83 Balance 805.83 / 805.83 Lab / Micro Data 08/03/24 03:52 08/03/24 03:52 Labs: Laboratory Results - last 24 hr 08/01/24 15:35: POC Glucose 87 08/02/24 07:07: Hemoglobin A1c 5.3 08/02/24 12:14: APTT 28.6 08/02/24 19:30: APTT 110.0 H* 08/03/24 03:52: WBC 7.1, RBC 4.69, Hgb 14.7, Hct 42.9, MCV 91.5, MCH 31.3, MCHC 34.3, RDW Std Deviation 42.2, RDW Coeff of Anna 12.6, Plt Count 150, MPV 10.9, Immature Gran % (Auto) 0.400, Neut % (Auto) 51.6, Lymph % (Auto) 32.3, [place] % (Auto) 12.2 H, Eos % (Auto) 2.7, Baso % (Auto) 0.8, Absolute Neuts (auto) 3.6, Absolute Lymphs (auto) 2.28, Nucleated RBC % 0, APTT 67.2 H, Sodium 139, Potassium 4.0, Chloride 109 H, Carbon Dioxide 26.0, Anion Gap 5, BUN 13, Creatinine 0.95, Estim Creat Clear Calc 41.08, Est GFR (MDRD) Af Amer 73, Est GFR (MDRD) Non-Af 60, BUN/Creatinine Ratio 13.7, Glucose 102, Calcium 8.9 Radiography Diagnostic Testing: Radiology Impression Echocardiogram 08/01/24 18:29 Interpretation Summary Normal LV size. Left ventricular systolic function is normal. A large mobile structure attached to the interatrial septum measuring up to 2.7 cm x 2.1 cm very suggestive of a thrombus though an atypical myxoma cannot be completely excluded. Smaller mass measuring 1.1 x 1.1 cm also noted in the lower septum also suggestive of a thrombus. Rec DIMITRI The left ventricular ejection fraction is 60 %. Ordering Physician: Vikki Fernandez Referring Physician: Vikki Fernandez Performed By: Nancy Ridley, SONIA, RVT Physical Exam Narrative General: Alert, oriented, no apparent distress HEENT: Atraumatic, normocephalic Eyes: Anicteric, normal conjunctiva, extraocular movements grossly intact Neck: Supple Respiratory: Clear to auscultation bilaterally, normal respiratory effort Cardiovascular: Irregularly irregular GI: Soft, nontender, nondistended Extremities: No edema Musculoskeletal: Moving all extremities Neuro: No overt focal neurological deficits Skin: No rashes appreciated Psych: Cooperative Assessment & Plan Assessment/Plan (1) Thrombus in heart chamber: PLAN: Plan # Atrial thrombus -Echo showed a large mobile structure attached to interatrial septum measuring 2.7 cm x 2.1 cm suggestive of thrombus but atypical myxoma cannot be excluded, additionally small area of 1.1 x 1.1 cm also noted in the lower septum also suggestive of thrombus -Patient placed on heparin drip -DIMITRI recommended, will place order for this -08/03: N.p.o. at midnight, DIMITRI ordered for tomorrow, instructions received and passed along to care team to not hold heparin drip for procedure # TIA -Presenting symptoms completely resolved -MRI with questionable small infarct on the right however suspected that this is artifact and also does not correlate with the symptoms she had on presentation -Neurology recommended blood pressure control and okay to start anticoagulation with no need for aspirin from stroke standpoint -Discussed with neurologist -08/03: Patient with no present neurologic complaints, continue aspirin and statin #DVT ppx: On heparin drip Madai Mitchell MD Time spent in the patient's overall evaluation, decision-making process, review of diagnostic data, adjustment of management, discussion with other providers, nursing and ancillary staff involved in patient's care documentation, 36 Minutes Charges/Coding Visit Charges Inpatient E&M: 48556 Subs Hosp L2
[2024-08-03 10:30] LABS: Partial Thromboplast Time 134.9 Seconds (24.1-36.2)
[2024-08-03] MEDS: hydrALAZINE 20 MG/ML Vial 10 MG IV (18:05)
[2024-08-03 19:17] LABS: Partial Thromboplast Time 31.4 Seconds (24.1-36.2)
[2024-08-03] MEDS: Atorvastatin Calcium 40 MG Tablet PO (19:32)
[2024-08-03] MEDS: Heparin Injection (Vial) 5,000 UNIT/ML VIAL IV (19:39)
[2024-08-03] MEDS: Metoprolol Tartrate 25 MG Tablet PO (22:01)
[2024-08-04] VITALS (13 sets, daily range): BP systolic 135–150; BP diastolic 68–95; PULSE 60–82; RESP 15–18; TEMP 36.4–37.2; O2SAT 95–99; BMI 23.3
--- NOTE | 2024-08-04 01:15 | NURSING ---
Patient reports the left side of her face feels heavy-RN does not note a facial droop, patient denies any N/T to that area states it feels heavy. Patient states it has felt this way for a couple days now. Will continue to monitor
[2024-08-04 02:35] LABS: Partial Thromboplast Time 65.8 Seconds (24.1-36.2)
[2024-08-04] MEDS: HEPARIN/D5w 25,000 UNITS 25,000 UNITS/250 ML IV.SOLN. 6 UNITS CONT INF (05:21)
[2024-08-04 08:02] LABS: Absolute Lymphocyte Count 1.74 X10^3/uL (0.83-4.51); Absolute Neutrophil Count 3.6 X10^3/uL (2.0-7.7); Basophil# 0.06 X10^3/uL; Eosinophil# 0.18 X10^3/uL; Eosinophils% 2.9 % (0-5); Hematocrit 44.4 % (37-47); Hemoglobin 15.1 g/dL (12.0-15.0); Lymphocyte # 1.74 X10^3/ul (0.83-4.51); Lymphocyte % 27.8 % (19-41); Mean Corpuscular Hgb 31.5 pg (27.0-32.0); Mean Corpuscular Volume 92.5 fL (81-99); Monocyte# 0.71 X10^3/uL; Monocyte% 11.3 % (0-10); NRBC Flagged by Analyzer 0 % (0-5); Neutrophil # 3.57 X10^3/uL (2.7-7.7); Neutrophil % 56.8 % (47-70); Platelet Count 162 K/mm3 (150-450); RBC Distribution Width CV 12.6 % (11.6-14.6); RBC Distribution Width SD 43.4 fl (35.1-43.9); White Blood Count 6.3 K/mm3 (4.4-11.0)
[2024-08-04 08:17] LABS: Partial Thromboplast Time 53.6 Seconds (24.1-36.2)
[2024-08-04 08:24] LABS: Anion Gap 6 (5-15); BUN 14 mg/dL (7-18); BUN/Creat Ratio 14.3 RATIO (10-20); Calcium,Total 8.8 mg/dL (8.5-10.1); Chloride 109 mmol/L (98-107); Creatinine, Serum 0.98 mg/dL (0.55-1.02); EST Glomerular Filtration Rate 58 mL/min (>60); Est Glom Filt Rate - Afr Amer 70 mL/min (>60); Estimated Creatinine Clearance 39.83 ml/min; Glucose 107 mg/dL (74-106); Potassium 4.2 mmol/L (3.5-5.1); Sodium Level 139 mmol/L (136-145)
--- NOTE | 2024-08-04 10:15 | PCM.CONS.C ---
Assessment & Plan Assessment/Plan (1) Cardiac mass: PLAN: Patient is noted to have a cardiac mass noted on echocardiogram. This is very suggestive of a cardiac myxoma. My recommendation will be to evaluate her coronary anatomy and then consider sending her to a tertiary care facility for further evaluation of the above. It is possible that this mass was a nidus for small thrombi which may have caused the TIA. Addendum: 1 PM. Cardiac catheterization demonstrated no significant obstructive coronary disease. Will recommend arrange for transfer to a tertiary care facility. (2) Afib: PLAN: She does have evidence of chronic persistent atrial fibrillation and is a candidate for long-term anticoagulation. Will consider resuming anticoagulation and putting her on a NOAC after the cardiac catheterization performed. (3) HTN (hypertension): PLAN: Her blood pressure was elevated when she was admitted. However it appears to be better at this time. I will however suggest that we continue her aggressively likely on an SWAPNIL inhibitor. Her ventricular response rate appears to be controlled. HPI Consult Data Date of Consult: 08/04/24 HPI Narrative HPI Narrative: ANGELICA CR, is a 84 F who presented to the emergency room with sudden onset of dysarthria as well as facial numbness. She was admitted to the telemetry care unit through the emergency room as a possible TIA CVA. She was seen by neurology who at that time did not think that she was a candidate for TNK. She had a history of atrial fibrillation previously but for reasons that are not entirely clear she had discontinued taking the anticoagulation. She was noted to be in atrial fibrillation with a controlled ventricular response rate. An echocardiogram was ordered as part of a routine workup and she was noted to have preserved ejection fraction but with a mass in the left atrium. 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 She has been evaluated for definitive management. She denies any chest pain or shortness of breath or paroxysmal nocturnal dyspnea pedal edema her symptoms have completely resolved. [facility] Medical History (Updated 08/04/24 @ 10:[address] Jed Garcia MD) Afib HTN (hypertension) Home Medications ?Medication ?Instructions ?Recorded ?Last Taken ?Type NK 08/01/24 Unknown History Allergy/AdvReac Type Severity Reaction Status Date / Time No Known Allergies Allergy Verified 08/01/24 16:07 Family History Mother CVA (cerebral vascular accident) Father No problems noted. Surgical History History of bilateral tubal ligation History of total right hip replacement History of throat surgery Social History household members: none Smoking Status: Never smoker alcohol intake: never substance use type: does not use ROS Constitutional Constitutional: Denies fever(s) or weight loss Eyes Eyes: Reports systems reviewed and no addt'l complaints, except as documented ENT HEENT: Reports systems reviewed and no addt'l complaints, except as documented Cardiovascular Cardiovascular: Denies chest pain at rest, chest pain with activity, dyspnea at rest, dyspnea on exertion, edema, palpitations or paroxysmal nocturnal dyspnea Respiratory/Chest Respiratory/Chest: Denies dyspnea on exertion, productive cough, shortness of breath at rest or shortness of breath with exertion Gastrointestinal Gastrointestinal: Denies change in bowel habits, nausea, vomiting or weight changes Genitourinary Genitourinary: Denies difficulty urinating Musculoskeletal Musculoskeletal: Denies joint stiffness or muscle weakness Integumentary Integumentary: Denies lesions Neurologic Neurologic: Reports dizziness, focal weakness and lack of coordination; Denies syncope Psychiatric Psychiatric: Denies anxiety Endocrine Endocrinology: Denies excessive sweating or fatigue Hematologic/Lymphatic Hematologic/Lymphatic: Denies anemia Allergic/Immunologic Allergic/Immunologic: Denies seasonal rhinorrhea Physical Exam Const alert, oriented x3 and no apparent distress General Appearance: cooperative HEENT hearing grossly normal bilaterally Head and Scalp: atraumatic Eyes EOMs intact bilaterally Neck General: normal visual inspection Chest inspection of chest normal and palpation of chest normal Resp normal respiratory effort Auscultation: clear to auscultation bilaterally Cardio S1 normal heart sound and S2 normal heart sound Jugular Venous Distention: JVD Rhythm: abnormal rhythm irregularly irregular GI normal to inspection, nondistended, normoactive bowel sounds Extremity normal capillary refill and no pedal edema Peripheral Pulses: Yes pulses 2+ throughout and femoral pulses present Skin no rashes or lesions noted Neuro oriented x3 and CN's II-XII intact bilaterally Psych Appearance: grossly normal and appropriate Risk Stratification Risk Stratification Applicable: No Objective Data Vital Signs: Vital Signs Temp Pulse Resp BP Pulse Ox O2 Del Method 97.7 F L 70 18 139/95 H 96 Room Air 08/04/24 08:15 08/04/24 08:15 08/04/24 08:15 08/04/24 08:15 08/04/24 08:15 08/04/24 08:40 Oxygen Delivery Method Room Air Weight: 139 lb 15.896 oz Body Mass Index (BMI) 23.3 Intake & Output: Intake and Output for Last 24 Hours 08/02/24 08/03/24 08/04/24 23:59 23:59 23:59 Intake Total 805.83 / 805.83 1215.70 / 1215.70 76.2 / 76.2 Balance 805.83 / 805.83 1215.70 / 1215.70 76.2 / 76.2 Lab / Micro Data 08/04/24 07:43 08/04/24 07:43 Labs: Laboratory Results - last 24 hr 08/03/24 09:55: APTT 134.9 H* 08/03/24 18:40: APTT 31.4 08/04/24 01:48: APTT 65.8 H 08/04/24 07:43: WBC 6.3, RBC 4.80, Hgb 15.1 H, Hct 44.4, MCV 92.5, MCH 31.5, MCHC 34.0, RDW Std Deviation 43.4, RDW Coeff of Anna 12.6, Plt Count 162, MPV 11.0, Immature Gran % (Auto) 0.200, Neut % (Auto) 56.8, Lymph % (Auto) 27.8, [place] % (Auto) 11.3 H, Eos % (Auto) 2.9, Baso % (Auto) 1.0, Absolute Neuts (auto) 3.6, Absolute Lymphs (auto) 1.74, Nucleated RBC % 0, APTT 53.6 H, Sodium 139, Potassium 4.2, Chloride 109 H, Carbon Dioxide 24.0, Anion Gap 6, BUN 14, Creatinine 0.98, Estim Creat Clear Calc 39.83, Est GFR (MDRD) Af Amer 70, Est GFR (MDRD) Non-Af 58 L, BUN/Creatinine Ratio 14.3, Glucose 107 H, Calcium 8.8 Cardiology Labs/Tests 08/03/24 09:55: APTT 134.9 H* 08/03/24 18:40: APTT 31.4 08/04/24 01:48: APTT 65.8 H 08/04/24 07:43: WBC 6.3, RBC 4.80, Hgb 15.1 H, Hct 44.4, MCV 92.5, MCH 31.5, MCHC 34.0, Plt Count 162, MPV 11.0, Immature Gran % (Auto) 0.200, Neut % (Auto) 56.8, Lymph % (Auto) 27.8, [place] % (Auto) 11.3 H, Eos % (Auto) 2.9, Baso % (Auto) 1.0, Absolute Neuts (auto) 3.6, Nucleated RBC % 0, APTT 53.6 H, Sodium 139, Potassium 4.2, Chloride 109 H, Carbon Dioxide 24.0, Anion Gap 6, BUN 14, Creatinine 0.98, Est GFR (MDRD) Af Amer 70, Est GFR (MDRD) Non-Af 58 L, BUN/Creatinine Ratio 14.3, Glucose 107 H, Calcium 8.8 Rhythm: EKG: ECHO: Stress Test: Cardiac Cath: PCI: CT Surgery: Holter monitor: EPS: PPM: CXR: Chest CT Scan:
--- NOTE | 2024-08-04 10:20 | CASEMGMT ---
Insurance review [facility] hospitals [facility] if transfer is recommended is as follows: [facility], [facility] ([facility] [place], [facility], [facility], [place], [facility], [facility], [place], and . Ena Hernandez, Discharge Planning Asst.
[2024-08-04] MEDS: Aspirin 81 MG TAB.CHEW PO (11:53)
[2024-08-04] MEDS: Metoprolol Tartrate 25 MG Tablet PO (11:53)
--- NOTE | 2024-08-04 13:15 | CL.D_ITS ---
Patient Name: ANGELICA CR Study Date: 08/04/2024 Performing: Jed Garcia MD Ht: 65 inches 165.1 cm : 1940 Wt: 139.99 lbs 63.5 kg Age: 84 Gender: female BSA: 1.7 PROCEDURE(S) PERFORMED [id number])[facility]/COR CLINICAL PROFILE AND INDICATIONS Indications: Other Heart Failure: None Stress/Imaging Stress/Image Study Performed: No CAD Presentations: No Sxs, no angina. 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 The risks and benefits of the procedure as well as a full description of our services here and current unavailability of surgical backup were fully explained to the patient and/or their significant other prior to the catheterization. The Timeout was completed, verifying the correct patient and procedure. The patient's procedural site was prepped and draped in the usual fashion. Local anesthetic was given subcutaneously to right radial region with Lidocaine 2%. Using a modified Seldinger technique, arterial access was obtained via the right radial artery, a 6Fr sheath was inserted. Left Coronary Artery selective angiography was performed in multiple views using a 5 Fr. 4.0 Bertrand catheter. Right Coronary Artery selective angiography was then performed in multiple views using a 5 Fr. 4.0 Bertrand catheter.The arterial sheath was pulled and a TR Band was applied for hemostasis. 10cc of air CORONARY ANGIOGRAPHY DOMINANCE: Right Dominant LEFT HEART ASSESSMENT Normal Left Ventricular systolic function Left atrial Myxoma x 2 LEFT MAIN: Angiographically normal LEFT ANTERIOR DESCENDING ARTERY: Mild calcification MID LAD: 40 % Stenosis DISTAL LAD: Mild luminal irregularities CIRCUMFLEX ARTERY: Mild luminal irregularities less than 30% RIGHT CORONARY ARTERY: Mild luminal irregularities COMPLICATIONS No Complications PROCEDURE MEDICATIONS Fentanyl 50 mcg IV Versed 1 mg IV Oxygen: 2 L/min via nasal cannula Heparin given IA 08/04/2024 12:37:16 Verapamil 2.5mg, Ntg 100mcgs, 3000 units of Heparin given IA 08/04/2024 12:37:16 SUMMARY OF HEMODYNAMIC DATA Time AIR REST ECG 12:27:06 AO 142/74 (102) SA 12:43:52 Signed By Jed Garcia MD On 08/04/2024 15:04:11 Jed Garcia MD
--- NOTE | 2024-08-04 15:09 | PCM.DC ---
Discharge Instructions Diet Discharge Diet: No restrictions DC O2, CPAP, BIPAP needs Home O2 Discharge instructions: No Follow Up Care Test Results: Test results from this visit will be discussed in further detail at your follow-up appointment, if applicable. Discharge Plan Admission Admit Date/Time: 08/01/24 16:49 Primary Reason for Your Visit: TIA symptoms Attending Provider: Madai Mitchell Primary Care Provider: Care Physician,No Primary Consulting Providers: Vikki Fernandez Discharge Orders/Prescriptions Prescriptions: New atorvastatin 40 mg Tablet 40 mg PO QHS Qty: 0 0RF aspirin 81 mg Tablet,Chewable 81 mg PO BREAKFAST Qty: 0 0RF metoprolol tartrate 25 mg Tablet 25 mg PO BID Qty: 0 0RF Referrals / Follow Up: Care Physician,No Primary [Primary Care Provider] - [facility] Doctor,Out of [Non-Staff] - Disposition Disposition (needs filled in before D/C Order can be placed): Acute Care [facility]
--- NOTE | 2024-08-04 15:13 | PCM.DC.SUM ---
Providers Date of Admission: 08/01/24 Date of Discharge: 08/04/24 Primary Care Physician: Amy Primary Care Phys Consultations 08/01/24 18:29 Consult: Tele-Neurology Routine Consulting Provider: [facility] Reason for Consult: Acute Ischemic Stroke/TIA EMERGENT Consult: No MD Notified: Yes Date Notified: 08/01/24 Time Notified: 18:27 Method of Notification: Answering Service Nursing Unit Staff Notify [facility] of Tele-Neurology Consult: Yes Reason For Visit: CVA Diagnosis Discharge Diagnosis (1) Cardiac mass: Status: Acute Code(s): I51.89 - Other ill-defined heart diseases (2) Afib: Status: Acute Code(s): I48.91 - Unspecified atrial fibrillation (3) HTN (hypertension): Status: Chronic Code(s): I10 - Essential (primary) hypertension Plan # 2 atrial masses, 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 # TIA Medications at Discharge Home Medications atorvastatin 40 mg tablet 40 mg PO QHS #0 tabs 08/04/24 metoprolol tartrate 25 mg tablet 25 mg PO BID #0 tabs 08/04/24 Hospital Course Procedures Cardiac catheterization and Transesophageal Echo Summary of Care Provided Minutes Spent on Discharge: 35 Hospital Course: Patient is an 84-year-old female with a history of A-fib not presently on anticoagulation who presented to [facility] 08/01/2024 as a stroke alert as she had some dysarthria and right sided arm weakness and paresthesias, symptoms were resolving rapidly so she was not felt to be a TNK candidate. She was admitted for CVA workup and noted to be in A-fib. 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 During her workup she had echo which appeared to have atrial mass versus thrombus and cardiology recommended heparin drip and DIMITRI. DIMITRI revealed 2 masses on intra-atrial septum on 08/04/2024 with the largest to 3 x 2.3 cm. Cardiology recommended resuming the heparin and transferring to a higher level of care for surgical evaluation. Patient had cardiac cath after her DIMITRI to evaluate coronary anatomy and there is no obstructive coronary artery disease. Discussed with [facility] 08/04/[address] Jessica. Patient evaluated post DIMITRI and cardiac cath. She feels like her thoughts are little slow and is little hard to find words now that she is postprocedure/after receiving the intraprocedure medications but no facial droop or focal neurologic complaints. This is slowly improving, patient has a little bit of tingling in her right hand from the post cath tourniquet that is slowly being released but denies any particular focal complaints, complaints are global and likely due to the Versed and fentanyl received intraprocedure. Patient has no other new or acute complaints. Patient to be transferred to [facility] 08/04/2024. Instructions to resume heparin drip at 5 PM were received from cardiology and been conveyed to floor team prior to transfer. Physical Exam Narrative General: Alert, oriented, no apparent distress HEENT: Atraumatic, normocephalic Eyes: Anicteric, normal conjunctiva, extraocular movements grossly intact Neck: Supple Respiratory: Clear to auscultation bilaterally, normal respiratory effort Cardiovascular: Irregularly irregular GI: Soft, nontender, nondistended Extremities: No edema Musculoskeletal: Moving all extremities Neuro: No overt focal neurological deficits Skin: No rashes appreciated Psych: Cooperative Weight / BMI Weight Weight: 63.5 kg Body Mass Index (BMI) 23.3 ABG / Lab / Microbiology Data 08/04/24 07:43 08/04/24 07:43 Laboratory: Laboratory Results - last 24 hr 08/03/24 18:40: APTT 31.4 08/04/24 01:48: APTT 65.8 H 08/04/24 07:43: WBC 6.3, RBC 4.80, Hgb 15.1 H, Hct 44.4, MCV 92.5, MCH 31.5, MCHC 34.0, RDW Std Deviation 43.4, RDW Coeff of Anna 12.6, Plt Count 162, MPV 11.0, Immature Gran % (Auto) 0.200, Neut % (Auto) 56.8, Lymph % (Auto) 27.8, Barton % (Auto) 11.3 H, Eos % (Auto) 2.9, Baso % (Auto) 1.0, Absolute Neuts (auto) 3.6, Absolute Lymphs (auto) 1.74, Nucleated RBC % 0, APTT 53.6 H, Sodium 139, Potassium 4.2, Chloride 109 H, Carbon Dioxide 24.0, Anion Gap 6, BUN 14, Creatinine 0.98, Estim Creat Clear Calc 39.83, Est GFR (MDRD) Af Amer 70, Est GFR (MDRD) Non-Af 58 L, BUN/Creatinine Ratio 14.3, Glucose 107 H, Calcium 8.8 08/04/24 14:20: APTT 29.2 08/04/24 14:49: APTT Cancelled D/C Instructions Discharge Diet: No restrictions DC O2, CPAP, BIPAP Needs Home O2 Discharge instructions: No Meaningful Use Info Meaningful Use Meaningful Use Diagnoses (Choose all that apply): None applicable Ischemic Stroke Statin Dosing Therapy Reference: STATIN DOSE THERAPY REFERENCE: * Patients > 75 years receive moderate or high dose statin therapy. * Patients 75 years or YOUNGER should receive HIGH intensity statin dose unless contraindicated. You will be required to document reason for non-treatment if statin daily dose does not meet guidelines. HIGH DOSE STATIN THERAPY DAILY Atorvastatin > than or = to 40 mg Rosuvastatin > than or = to 20 mg Amlodipine + Atorvastatin > than or = to 2.5/40 mg Ezetimibe + Simvastatin 10/80 mg Simvastatin 80mg Discharge Plan Admission Admit Date/Time: 08/01/24 16:49 Primary Reason for Your Visit: TIA symptoms Attending Provider: Madai Mitchell Primary Care Provider: Care Physician,Amy Primary Consulting Providers: Vikki Fernandez Discharge Orders/Prescriptions Prescriptions: New atorvastatin 40 mg Tablet 40 mg PO QHS Qty: 0 0RF metoprolol tartrate 25 mg Tablet 25 mg PO BID Qty: 0 0RF Referrals / Follow Up: Care Physician,No Primary [Primary Care Provider] - [facility] Doctor,Out of [Non-Staff] - Disposition Disposition (needs filled in before D/C Order can be placed): Acute Care Hospital Charges/Coding Visit Charges Inpatient E&M: 69408 Disch Hosp >30min
--- NOTE | 2024-08-04 16:19 | CHAPLAIN ---
Type of Pastoral Visit _x__ Initial Visit ___ Follow-up Visit ___ On-call Visit ___ General Patient Visit ___ Spiritual Assessment ___ Family Conference ___ Bereavement ___ Rapid Response ___ Code Blue ___ Other (describe below) Pastoral Care Referral From _x__ Patient _x__ Family ___ Nurse ___ Physician ___ Director Client Services ___ Plate Mounter ___ Other (describe below) Sacrament/Intervention _x__ Active listening ___ Anointing ___ Taoism ___ Bereavement ___ Communion ___ Radha exploration ___ ___ Life review _x__ Prayer ___ Reconciliation ___ Sacrament of Sick _x__ Supportive presence ___ Wedding ___ Other (describe below) Pastoral Comments patient and two children are in the room; pt admits to the health concern and that she is being transferred to [facility] for more testing/interventions; pt states that she is handling this fine and puts trust in God; daughter states that her mother is always active and that she needs this to be able to continue that; pt welcomes prayer
[2024-08-04 16:49] LABS: Partial Thromboplast Time 29.2 Seconds (24.1-36.2)
--- NOTE | 2024-08-04 17:38 | NURSING ---
Report given to Ashleigh WARREN at [facility] @ [phone]
== END 2024-08-04 20:15 | disposition short-term general hospital (02) | DRG 287 ==
LOC: ED 16:49 → PCU 16:57
PROVIDERS: Admitting Provider Family Medicine; Emergency Provider Emergency Medicine; Referring Provider Family Medicine; Visit Provider Internal Medicine
DX: I51.3 Intracardiac thrombosis, not elsewhere classified (principal); I16.1 Hypertensive emergency; G45.9 Transient cerebral ischemic attack, unspecified; I48.19 Other persistent atrial fibrillation; I67.89 Other cerebrovascular disease; G93.89 Other specified disorders of brain; I48.0 Paroxysmal atrial fibrillation; N18.30 Chronic kidney disease, stage 3 unspecified; G83.23 Monoplegia of upper limb affecting right nondominant side; D32.9 Benign neoplasm of meninges, unspecified; D15.1 Benign neoplasm of heart; I65.23 Occlusion and stenosis of bilateral carotid arteries; I12.9 Hypertensive chronic kidney disease with stage 1 through stage 4 chronic kidney disease, or unspecified chronic kidney disease; R20.0 Anesthesia of skin; R47.1 Dysarthria and anarthria; Z79.02 Long term (current) use of antithrombotics/antiplatelets; Z79.899 Other long term (current) drug therapy; Z91.148 Patient's other noncompliance with medication regimen for other reason
CPT/HCPCS: 36415; 70450; 70496; 70498; 70553; 71045; 80048; 80053; 80061; 82962; 83036; 83735; 84443; 84484; 85025; 85610; 85730; 92523; 93005; 93306; 93312; 93320; 93325; 93454; 94668; 94762; 97161; 97165; 99152; 99153; 99285; A9575; Q9957; Q9967; A4216; C1769; C1894